=== PATIENT | female | born 1945 | race African-American/Black ===

== ENCOUNTER 2017-05-22 20:57 | Inpatient (IN) | payer MEDICARE, MEDICAID ==
[~2017-05-22] VITALS: Ht 167.6 cm; Wt 68.0 kg
[~2017-05-22 20:57] MED LIST: ALBU05 IH; ALD50 PO; ASPI-1159 PO; FAMO40TA70 PO; FLUT1DIS3 IH; FURO-151 PO; GUAI1TBM14 PO; HYDR-4134 PO; LEVO500T2 PO; LINA5TAB PO; LISI-604 PO; P20 PO; PRANDIN PO; TIOT18CA3 IH
[2017-05-22] MEDS ORDERED: ASPIRIN 81MG TABLET PO STA (21:18)
[2017-05-22] MEDS ORDERED: FUROSEMIDE 40MG/4ML VIAL IV STA (21:18)
[2017-05-22] MEDS ORDERED: IPRATROPIUM/ALBUTEROL 0.5-3(2.5)MG/3ML NEB HHN ONE (21:30)
[2017-05-22 22:07] LABS: BG BASE EXCESS 3.1 mmol/L (-2.0-2.0); BG CARBOXYHEMOGLOBIN 1.5 % (0.5-1.5); BG DEOXYHEMOGLOBIN 6.2 % (0.0-5.0); BG FRACTION INSPIRED OXYGEN 32; BG HCO3 ACT 27.8 mmol/L (22.0-26.0); BG METHEMOGLOBIN 0.2 % (0.0-1.5); BG OXYGEN SATURATION 93.7 % (92.0-98.5); BG OXYHEMOGLOBIN 92.1 % (94.0-97.0); BG PH 7.429 (7.350-7.450); BG PO2 67.5 mmHg (75.0-100.0); BG SAMPLE SITE LEFT RADIAL; BG TOTAL HEMOGLOBIN 15.5 g/dL (12.0-18.0); BG VENT MODE NASAL CANNULA
[2017-05-22 22:37] LABS: BASOPHILS % 0.7 % (0.0-2.0); EOSINOPHILS % 9.4 % (0.0-5.0); HEMATOCRIT. 41.8 % (36.0-48.0); HEMOGLOBIN. 14.2 g/dL (12.0-16.0); LYMPHOCYTES % 37.1 % (20.0-50.0); MEAN CORPUSCULAR HEMOGLOBIN 29.8 pg (28.0-32.0); MEAN PLATELET VOLUME 8.9 fl (7.4-10.4); MONOCYTES % 10.9 % (2.0-8.0); NEUTROPHILS % 41.9 % (40.0-76.0); PLATELET 155 x1000/uL (130-400); RED BLOOD CELL COUNT 4.75 mill/uL (4.2-5.4); RED CELL DISTRIBUTION WIDTH 13.6 % (11.6-14.6)
[2017-05-22 22:38] LABS: CHLORIDE 105 mEq/L (98-107)
[2017-05-22 22:41] LABS: D-DIMER 1.88 mg/L FEU (<0.50); INR 1.2; PARTIAL THROMBOPLASTIN TIME 24.8 sec (23.4-31.0); PROTHROMBIN TIME 12.7 sec (9.4-11.6)
[2017-05-22 22:45] LABS: CARBON DIOXIDE 31 mEq/L (21-32); CREATINE KINASE 108 IU/L (26-192)
[2017-05-22 22:45] LABS: *AMPHETAMINES SCREEN URINE NEGATIVE (NEGATIVE); *BARBITURATES SCREEN URINE NEGATIVE (NEGATIVE); *BENZODIAZEPINES SCREEN URINE NEGATIVE (NEGATIVE); *COCAINE SCREEN URINE PRESUMTIVE POSITIVE (NEGATIVE); CANNABINOID URINE SCREEN NEGATIVE (NEGATIVE); METHADONE URINE SCREEN NEGATIVE (NEGATIVE); OPIATES URINE SCREEN NEGATIVE (NEGATIVE); PHENCYCLIDINE URINE SCREEN NEGATIVE (NEGATIVE)
[2017-05-22 22:47] LABS: TROPONIN I < 0.02 ng/mL (0.00-0.04)
[2017-05-22] MEDS ORDERED: MORPHINE SULFATE 4 MG/ML CPJ (NOT FOR IM USE) IV PRN (23:15)
[2017-05-22] MEDS ORDERED: LORAZEPAM 2MG/ML CPJ IV PRN (23:15)
[2017-05-22] MEDS ORDERED: MAGNESIUM/ALUMINUM HYDROXIDE/SIMETHICONE 30ML UDC PO PRN (23:15)
[2017-05-22] MEDS ORDERED: ENOXAPARIN 40MG/0.4ML SYR SUBCUT SCH (23:15)
[2017-05-22] MEDS ORDERED: DIPHENHYDRAMINE 50MG/ML VIAL IV PRN (23:15)
[2017-05-22] MEDS ORDERED: NITROGLYCERIN 0.4MG TABLET SL SL PRN (23:15)
[2017-05-22] MEDS ORDERED: TRAMADOL 50MG TABLET PO PRN (23:15)
[2017-05-22] MEDS ORDERED: ONDANSETRON HCL 4MG/2ML VIAL IV PRN (23:15)
[2017-05-22] MEDS ORDERED: NA PHOS,M-B/NA PHOS,DI-BA ENEMA 118ML PR PRN (23:15)
[2017-05-22] MEDS ORDERED: ZOLPIDEM TARTRATE 5MG TABLET PO PRN (23:15)
[2017-05-22] MEDS ORDERED: CLONIDINE 0.1MG TABLET PO PRN (23:15)
[2017-05-22] MEDS ORDERED: IPRATROPIUM/ALBUTEROL 0.5-3(2.5)MG/3ML NEB INH PRN (23:15)
[2017-05-22] MEDS ORDERED: DOCUSATE SODIUM 100MG CAPSULE PO PRN (23:15)
[2017-05-23 06:32] LABS: TROPONIN I < 0.02 ng/mL (0.00-0.04)
[2017-05-23 06:37] LABS: CREATINE KINASE 96 IU/L (26-192)
[2017-05-23 08:22] VITALS: BP 167/74
[2017-05-23 09:58] LABS: CARBON DIOXIDE 28 mEq/L (21-32); CHLORIDE 105 mEq/L (98-107)
[2017-05-23 10:43] LABS: BASOPHILS % 0.7 % (0.0-2.0); EOSINOPHILS % 7.1 % (0.0-5.0); HEMATOCRIT. 38.4 % (36.0-48.0); HEMOGLOBIN. 12.8 g/dL (12.0-16.0); LYMPHOCYTES % 25.2 % (20.0-50.0); MEAN CORPUSCULAR HEMOGLOBIN 29.4 pg (28.0-32.0); MEAN CORPUSCULAR VOLUME 88.4 fL (81.0-99.0); MEAN PLATELET VOLUME 9.4 fl (7.4-10.4); MONOCYTES % 10.9 % (2.0-8.0); NEUTROPHILS % 56.1 % (40.0-76.0); PLATELET 154 x1000/uL (130-400); RED BLOOD CELL COUNT 4.35 mill/uL (4.2-5.4); RED CELL DISTRIBUTION WIDTH 13.8 % (11.6-14.6)
[2017-05-23] MEDS ORDERED: POTASSIUM CHLORIDE 20MEQ TABLET SR PO NR ×2 (11:00→17:00)
[2017-05-23] MEDS ORDERED: DEXTROSE 50% WATER 50ML SYRINGE IV PRN (11:00)
[2017-05-23] MEDS: GUAIFENESIN/DM 600MG/30MG ER TAB 12HR PO SCH ×2 (11:11→20:56)
[2017-05-23] MEDS: SPIRONOLACTONE 25MG TABLET PO SCH ×2 (11:11→20:58)
[2017-05-23] MEDS: FUROSEMIDE 40MG/4ML VIAL IVP SCH ×2 (11:11→21:13)
[2017-05-23] MEDS: LISINOPRIL 20MG TABLET PO SCH ×2 (11:11→20:56)
[2017-05-23] MEDS: ASPIRIN 325MG EC TABLET PO SCH (11:11)
[2017-05-23] MEDS: FAMOTIDINE 20MG/2ML VIAL IV SCH ×2 (11:11→21:11)
[2017-05-23] MEDS: ENOXAPARIN 80MG/0.8ML SYR SUBCUT SCH ×2 (11:12→21:11)
[2017-05-23] MEDS ORDERED: SODIUM CHLORIDE 0.9% 10ML VIAL ONE (11:40)
[2017-05-23] MEDS ORDERED: IOHEXOL-350 100 ML BOTTLE ONE (11:40)
[2017-05-23] MEDS: LEVOFLOXACIN 500MG PREMIX 100 ML IV SCH (11:48)
[2017-05-23 12:00] VITALS: BP 133/73
[2017-05-23] MEDS ORDERED: KCL 20MEQ/100ML PREMIX 100 ML IV NR (12:00)
[2017-05-23] MEDS: BLOOD SUGAR DIAGNOSTIC STRIP TEST SCH ×3 (12:10→20:29)
[2017-05-23] MEDS: HYDRALAZINE HCL 50MG TABLET PO SCH ×2 (13:19→20:57)
[2017-05-23] MEDS: METHYLPREDNISOLONE SOD SUCC 125 MG/2 ML VIAL IV SCH ×2 (13:19→21:13)
[2017-05-23] MEDS: INSULIN LISPRO 100 UNITS/ML SUBCUT SCH ×3 (13:21→21:17)
[2017-05-23 14:53] LABS: CREATINE KINASE 87 IU/L (26-192); CREATINE KINASE MB FRACTION 3.5 ng/mL (0.5-3.6); TROPONIN I < 0.02 ng/mL (0.00-0.04)
[2017-05-23 16:00] VITALS: BP 132/77
[2017-05-23 20:00] VITALS: BP 139/62
[2017-05-23] MEDS: IPRATROPIUM/ALBUTEROL 0.5-3(2.5)MG/3ML NEB HHN SCH (20:06)
[2017-05-24] VITALS: BP 128/70
[2017-05-24 04:00] VITALS: BP 141/88
[2017-05-24] MEDS: IPRATROPIUM/ALBUTEROL 0.5-3(2.5)MG/3ML NEB HHN SCH ×6 (04:00→21:10)
[2017-05-24] MEDS: HYDRALAZINE HCL 50MG TABLET PO SCH ×3 (06:46→22:00)
[2017-05-24] MEDS: METHYLPREDNISOLONE SOD SUCC 125 MG/2 ML VIAL IV SCH ×3 (06:47→21:17)
[2017-05-24] MEDS: INSULIN LISPRO 100 UNITS/ML SUBCUT SCH ×4 (06:50→21:48)
[2017-05-24] MEDS: BLOOD SUGAR DIAGNOSTIC STRIP TEST SCH ×4 (07:10→21:00)
[2017-05-24 07:39] VITALS: BP 124/64
[2017-05-24 07:49] LABS: CARBON DIOXIDE 26 mEq/L (21-32); CHLORIDE 100 mEq/L (98-107)
[2017-05-24] MEDS: FUROSEMIDE 40MG/4ML VIAL IVP SCH ×2 (08:53→21:18)
[2017-05-24] MEDS: FAMOTIDINE 20MG/2ML VIAL IV SCH ×2 (08:53→21:17)
[2017-05-24] MEDS: GUAIFENESIN/DM 600MG/30MG ER TAB 12HR PO SCH ×2 (08:53→21:20)
[2017-05-24] MEDS: LISINOPRIL 20MG TABLET PO SCH ×2 (08:53→21:25)
[2017-05-24] MEDS: SPIRONOLACTONE 25MG TABLET PO SCH ×2 (08:53→21:21)
[2017-05-24] MEDS: ENOXAPARIN 80MG/0.8ML SYR SUBCUT SCH ×2 (09:09→21:45)
[2017-05-24] MEDS: ASPIRIN 325MG EC TABLET PO SCH (09:09)
[2017-05-24] MEDS: GUAIFENESIN 200MG/10ML SUGAR FREE UDC PO PRN (10:59)
[2017-05-24 12:00] VITALS: BP 146/57
[2017-05-24] MEDS: LEVOFLOXACIN 500MG PREMIX 100 ML IV SCH ×2 (13:29→13:36)
[2017-05-24 15:58] VITALS: BP 128/53
[2017-05-24] MEDS: ACETAMINOPHEN 325MG TABLET PO PRN (17:03)
[2017-05-24 20:00] VITALS: BP 138/72
[2017-05-24] MEDS: BUDESONIDE 0.5MG/2ML NEB HHN SCH (21:10)
[2017-05-25] VITALS: BP 129/96
[2017-05-25] MEDS: IPRATROPIUM/ALBUTEROL 0.5-3(2.5)MG/3ML NEB HHN SCH ×6 (00:35→20:00)
[2017-05-25 04:00] VITALS: BP 125/70
[2017-05-25] MEDS: HYDRALAZINE HCL 50MG TABLET PO SCH ×3 (06:15→22:46)
[2017-05-25] MEDS: BLOOD SUGAR DIAGNOSTIC STRIP TEST SCH ×4 (06:17→20:30)
[2017-05-25] MEDS: INSULIN LISPRO 100 UNITS/ML SUBCUT SCH ×4 (06:40→20:36)
[2017-05-25 07:32] VITALS: BP 126/51
[2017-05-25] MEDS: METHYLPREDNISOLONE SOD SUCC 125 MG/2 ML VIAL IV SCH (08:18)
[2017-05-25] MEDS: GUAIFENESIN/DM 600MG/30MG ER TAB 12HR PO SCH ×2 (08:19→20:25)
[2017-05-25] MEDS: ENOXAPARIN 80MG/0.8ML SYR SUBCUT SCH ×2 (08:19→22:46)
[2017-05-25] MEDS: SPIRONOLACTONE 25MG TABLET PO SCH ×2 (08:19→20:26)
[2017-05-25] MEDS: FUROSEMIDE 40MG/4ML VIAL IVP SCH ×2 (08:19→20:26)
[2017-05-25] MEDS: FAMOTIDINE 20MG/2ML VIAL IV SCH ×2 (08:19→20:26)
[2017-05-25] MEDS: BUDESONIDE 0.5MG/2ML NEB HHN SCH ×2 (08:21→16:00)
[2017-05-25] MEDS: LISINOPRIL 20MG TABLET PO SCH ×2 (08:26→20:25)
[2017-05-25] MEDS: ASPIRIN 325MG EC TABLET PO SCH (08:52)
[2017-05-25] MEDS: ACETAMINOPHEN 325MG TABLET PO PRN ×3 (08:52→22:45)
[2017-05-25 12:00] VITALS: BP 147/49
[2017-05-25] MEDS: GUAIFENESIN 200MG/10ML SUGAR FREE UDC PO PRN (12:34)
[2017-05-25 16:00] VITALS: BP 128/56
[2017-05-25] MEDS: LEVOFLOXACIN 500MG TABLET PO SCH (18:29)
[2017-05-25 20:00] VITALS: BP 142/67
[2017-05-25 21:30] LABS: CLARITY URINE CLOUDY (CLEAR); COLOR URINE ORANGE (YELLOW); GLUCOSE URINE 2+ (NEGATIVE); KETONES URINE NEGATIVE (NEGATIVE); LEUKOCYTE ESTERASE URINE 1+ (NEGATIVE); NITRITE URINE NEGATIVE (NEGATIVE); OCCULT BLOOD URINE 3+ (NEGATIVE); PROTEIN URINE 1+ (NEGATIVE); SPECIFIC GRAVITY URINE 1.027 (1.005-1.030)
[2017-05-25] MEDS ORDERED: INSULIN DETEMIR UD 100 UNITS/ML SYR SUBCUT SCH (22:00)
[2017-05-26] VITALS: BP 153/63
[2017-05-26] MEDS: IPRATROPIUM/ALBUTEROL 0.5-3(2.5)MG/3ML NEB HHN SCH ×3 (00:55→07:37)
[2017-05-26 04:00] VITALS: BP 141/71
[2017-05-26] MEDS: HYDRALAZINE HCL 50MG TABLET PO SCH ×2 (06:54→13:59)
[2017-05-26] MEDS: BLOOD SUGAR DIAGNOSTIC STRIP TEST SCH ×2 (06:56→13:01)
[2017-05-26] MEDS: BUDESONIDE 0.5MG/2ML NEB HHN SCH (07:36)
[2017-05-26] MEDS: INSULIN LISPRO 100 UNITS/ML SUBCUT SCH ×2 (07:58→13:28)
[2017-05-26 08:00] VITALS: BP 143/53
[2017-05-26] MEDS: LISINOPRIL 20MG TABLET PO SCH (08:54)
[2017-05-26] MEDS: SPIRONOLACTONE 25MG TABLET PO SCH (08:54)
[2017-05-26] MEDS: FUROSEMIDE 40MG/4ML VIAL IVP SCH (08:54)
[2017-05-26] MEDS: GUAIFENESIN/DM 600MG/30MG ER TAB 12HR PO SCH (08:55)
[2017-05-26] MEDS: FAMOTIDINE 20MG/2ML VIAL IV SCH (08:55)
[2017-05-26] MEDS: ASPIRIN 325MG EC TABLET PO SCH (08:58)
[2017-05-26] MEDS ORDERED: PREDNISONE 20MG TABLET PO SCH (09:00)
[2017-05-26] MEDS: ENOXAPARIN 80MG/0.8ML SYR SUBCUT SCH (11:09)
[2017-05-26] MEDS: LEVOFLOXACIN 500MG TABLET PO SCH (11:09)
[2017-05-26 11:57] VITALS: BP 143/53
[2017-05-26 12:00] VITALS: BP 122/53
== END 2017-05-26 14:00 | disposition home or self-care (01) | DRG 194 ==
LOC: ER 21:01 → 8WST 23:00 → ENRESERV 05-23 07:08
PROVIDERS: ADMIT Internal Medicine; ATTEND Internal Medicine
DX: I50.43 Acute on chronic combined systolic (congestive) and diastolic (congestive) heart failure (principal); I26.99 Other pulmonary embolism without acute cor pulmonale; J96.00 Acute respiratory failure, unspecified whether with hypoxia or hypercapnia; J44.1 Chronic obstructive pulmonary disease with (acute) exacerbation; I42.9 Cardiomyopathy, unspecified; E44.1 Mild protein-calorie malnutrition; E11.9 Type 2 diabetes mellitus without complications; I11.0 Hypertensive heart disease with heart failure; E87.6 Hypokalemia; F14.10 Cocaine abuse, uncomplicated; F17.210 Nicotine dependence, cigarettes, uncomplicated; Z79.4 Long term (current) use of insulin; Z83.3 Family history of diabetes mellitus; Z90.710 Acquired absence of both cervix and uterus; Z91.14 Patient's other noncompliance with medication regimen; Z88.5 Allergy status to narcotic agent; Z79.51 Long term (current) use of inhaled steroids; Z79.2 Long term (current) use of antibiotics; Z79.82 Long term (current) use of aspirin; Z79.899 Other long term (current) drug therapy; Z68.24 Body mass index [BMI] 24.0-24.9, adult
CPT/HCPCS: 36415; 36600; 71010; 71275; 80048; 80053; 80305; 81001; 82375; 82550; 82553; 82805; 82962; 83036; 83605; 83690; 83880; 84443; 84484; 85025; 85379; 85610; 85730; 87040; 93005; 93306; 93970; 94640; 94664; 96374; 97162; 97165; 99285; A4216; J1650; J1815; J1940; J1956; J2270; J2930; J3480; J3490; J7030; J7512; J7620; J7626; Q9967

== ENCOUNTER 2017-08-28 23:43 | Emergency (ER) | payer MEDICARE, MEDICAID ==
[~2017-08-28] VITALS: Ht 165.1 cm; Wt 72.0 kg
[2017-08-29] MEDS ORDERED: KETOROLAC 30MG/ML VIAL IV STA (04:41)
[2017-08-29] MEDS ORDERED: KETOROLAC 30MG/ML VIAL IM ONE (04:45)
[2017-08-29] MEDS ORDERED: ONDANSETRON 4MG ODT PO ONE (04:45)
[2017-08-29 05:00] LABS: CLARITY URINE CLEAR (CLEAR); COLOR URINE YELLOW (YELLOW); KETONES URINE NEGATIVE (NEGATIVE); LEUKOCYTE ESTERASE URINE TRACE (NEGATIVE); NITRITE URINE NEGATIVE (NEGATIVE); OCCULT BLOOD URINE NEGATIVE (NEGATIVE); PROTEIN URINE NEGATIVE (NEGATIVE); SPECIFIC GRAVITY URINE 1.008 (1.005-1.030); UROBILINOGEN URINE 0.2 E.U./dL (0.2-1.0)
[2017-08-29 05:21] LABS: CARBON DIOXIDE 28 mEq/L (21-32); CHLORIDE 107 mEq/L (98-107); ETHANOL BLOOD < 10 mg/dL
[2017-08-29 05:21] LABS: *AMPHETAMINES SCREEN URINE NEGATIVE (NEGATIVE); *BARBITURATES SCREEN URINE NEGATIVE (NEGATIVE); *BENZODIAZEPINES SCREEN URINE NEGATIVE (NEGATIVE); *COCAINE SCREEN URINE PRESUMTIVE POSITIVE (NEGATIVE); CANNABINOID URINE SCREEN NEGATIVE (NEGATIVE); METHADONE URINE SCREEN NEGATIVE (NEGATIVE); OPIATES URINE SCREEN NEGATIVE (NEGATIVE); PHENCYCLIDINE URINE SCREEN NEGATIVE (NEGATIVE)
[2017-08-29 05:22] LABS: INR 1.2; PROTHROMBIN TIME 12.5 sec (9.4-11.6)
[2017-08-29 05:23] LABS: BASOPHILS % 0.7 % (0.0-2.0); EOSINOPHILS % 6.7 % (0.0-5.0); HEMATOCRIT. 39.9 % (36.0-48.0); LYMPHOCYTES % 45.7 % (20.0-50.0); MEAN CORPUSCULAR HEMOGLOBIN 28.9 pg (28.0-32.0); MEAN CORPUSCULAR VOLUME 88.5 fL (81.0-99.0); MEAN PLATELET VOLUME 9.1 fl (7.4-10.4); NEUTROPHILS % 37.9 % (40.0-76.0); PLATELET 180 x1000/uL (130-400); RED BLOOD CELL COUNT 4.51 mill/uL (4.2-5.4); RED CELL DISTRIBUTION WIDTH 13.5 % (11.6-14.6)
[2017-08-29] MEDS ORDERED: LISINOPRIL 20MG TABLET PO ONE (07:45)
[2017-08-29 09:20] VITALS: BP 140/72
== END 2017-08-29 09:23 | disposition home or self-care (01) ==
LOC: ER 23:43
DX: M79.604 Pain in right leg (principal); M79.605 Pain in left leg; M79.89 Other specified soft tissue disorders; I50.9 Heart failure, unspecified; J44.9 Chronic obstructive pulmonary disease, unspecified; Z88.5 Allergy status to narcotic agent; Z59.0 Homelessness; Z79.82 Long term (current) use of aspirin; R03.0 Elevated blood-pressure reading, without diagnosis of hypertension
CPT/HCPCS: 36415; 71010; 80053; 80305; 81001; 85025; 85610; 87804; 93005; 96372; 99285; G0482; J1885; Q0162

== ENCOUNTER 2017-09-03 09:29 | Emergency (ER) | payer MEDICARE, MEDICAID ==
[~2017-09-03] VITALS: Ht 167.6 cm; Wt 65.0 kg
[2017-09-03 18:05] VITALS: BP 151/78
== END 2017-09-03 18:08 | disposition home or self-care (01) ==
LOC: ER 09:48
DX: B34.9 Viral infection, unspecified (principal); E11.9 Type 2 diabetes mellitus without complications; I11.0 Hypertensive heart disease with heart failure; I50.9 Heart failure, unspecified; J44.9 Chronic obstructive pulmonary disease, unspecified; Z79.82 Long term (current) use of aspirin; Z88.5 Allergy status to narcotic agent; Z86.711 Personal history of pulmonary embolism
CPT/HCPCS: 71010; 93005; 99284

== ENCOUNTER 2017-12-29 17:22 | Emergency (ER) | payer MEDICARE, MEDICAID ==
[~2017-12-29] VITALS: Ht 167.6 cm; Wt 57.0 kg
[~2017-12-29 17:22] MED LIST changes: -PRANDIN PO
[2017-12-29] MEDS ORDERED: ACETAMINOPHEN 325MG TABLET PO ONE (17:45)
[2017-12-29] MEDS ORDERED: IBUPROFEN 600MG TABLET PO ONE (20:00)
[2017-12-29 20:25] VITALS: BP 131/78
== END 2017-12-29 20:57 | disposition home or self-care (01) ==
LOC: ER 17:45
DX: S62.623A Displaced fracture of middle phalanx of left middle finger, initial encounter for closed fracture (principal); S20.212A Contusion of left front wall of thorax, initial encounter; S09.90XA Unspecified injury of head, initial encounter; M79.652 Pain in left thigh; I11.0 Hypertensive heart disease with heart failure; I50.9 Heart failure, unspecified; J44.9 Chronic obstructive pulmonary disease, unspecified; E11.9 Type 2 diabetes mellitus without complications; Z79.82 Long term (current) use of aspirin; Z88.5 Allergy status to narcotic agent; Y04.0XXA Assault by unarmed brawl or fight, initial encounter; Y93.89 Activity, other specified; Y92.89 Other specified places as the place of occurrence of the external cause; Y99.8 Other external cause status
CPT/HCPCS: 29130; 70450; 71101; 73130; 99284

== ENCOUNTER 2018-06-25 10:33 | Inpatient (IN) | payer MEDICARE, MEDICAID ==
[~2018-06-25] VITALS: Ht 325.1 cm; Wt 68.0 kg
[~2018-06-25 10:33] MED LIST changes: -ALBU05 IH; -ALD50 PO; -ASPI-1159 PO; -FLUT1DIS3 IH; -GUAI1TBM14 PO; -LEVO500T2 PO; -TIOT18CA3 IH
[2018-06-25] MEDS ORDERED: ALBUTEROL (0.083%) 2.5MG/3ML NEB HHN STA (10:45)
[2018-06-25] MEDS ORDERED: IPRATROPIUM BROMIDE (0.02%) 0.5MG/2.5ML NEB HHN STA (10:45)
[2018-06-25] MEDS ORDERED: METHYLPREDNISOLONE SOD SUCC 125 MG/2 ML VIAL IV STA (10:45)
[2018-06-25] MEDS ORDERED: FUROSEMIDE 20MG/2ML VIAL IVP ONE ×2 (11:15→12:30)
[2018-06-25 11:46] LABS: BASOPHILS % 0.9 % (0.0-2.0); EOSINOPHILS % 7.7 % (0.0-5.0); HEMATOCRIT. 41.8 % (36.0-48.0); HEMOGLOBIN. 14.4 g/dL (12.0-16.0); LYMPHOCYTES % 40.4 % (20.0-50.0); MEAN CORPUSCULAR HEMOGLOBIN 31.4 pg (28.0-32.0); MEAN CORPUSCULAR VOLUME 91.2 fL (81.0-99.0); MEAN PLATELET VOLUME 9.4 fl (7.4-10.4); MONOCYTES % 7.3 % (2.0-8.0); NEUTROPHILS % 43.7 % (40.0-76.0); PLATELET 174 x1000/uL (130-400); RED BLOOD CELL COUNT 4.58 mill/uL (4.2-5.4); RED CELL DISTRIBUTION WIDTH 13.2 % (11.6-14.6)
[2018-06-25 11:47] LABS: INR 1.2; PARTIAL THROMBOPLASTIN TIME 25.3 sec (23.4-31.0)
[2018-06-25] MEDS ORDERED: MAGNESIUM 2 G PREMIX 50 ML IV ONE (12:00)
[2018-06-25 12:02] LABS: CHLORIDE 103 mEq/L (98-107)
[2018-06-25] MEDS ORDERED: LEVOFLOXACIN 500MG PREMIX 100 ML IV ONE (12:30)
[2018-06-25] MEDS ORDERED: HYDRALAZINE 20MG/ML VIAL IV NR (13:45)
[2018-06-25] MEDS ORDERED: IPRATROPIUM/ALBUTEROL 0.5-3(2.5)MG/3ML NEB HHN PRN (13:45)
[2018-06-25] MEDS ORDERED: DEXTROSE 50% WATER 50ML SYRINGE IV PRN (13:45)
[2018-06-25] MEDS ORDERED: CLONIDINE 0.1MG TABLET PO PRN (13:45)
[2018-06-25] MEDS: BLOOD SUGAR DIAGNOSTIC STRIP TEST SCH ×2 (17:00→21:00)
[2018-06-25] MEDS: INSULIN LISPRO 100 UNITS/ML SUBCUT SCH ×2 (18:20→23:27)
[2018-06-25] MEDS ORDERED: METOPROLOL TARTRATE 50MG TABLET PO SCH (22:30)
[2018-06-25] MEDS: HYDRALAZINE HCL 50MG TABLET PO SCH (23:09)
[2018-06-25] MEDS: LOSARTAN POTASSIUM 100 MG TABLET PO SCH (23:10)
[2018-06-25] MEDS: FUROSEMIDE 40MG TABLET PO SCH (23:11)
[2018-06-25] MEDS: FAMOTIDINE 20MG TABLET PO SCH (23:11)
[2018-06-25] MEDS: AMLODIPINE 5MG TABLET PO SCH (23:12)
[2018-06-25] MEDS: METHYLPREDNISOLONE SOD SUCC 40 MG/ML VIAL IV SCH (23:12)
[2018-06-25] MEDS: MONTELUKAST SODIUM 10MG TABLET PO SCH (23:14)
[2018-06-25 23:32] VITALS: BP 149/69
[2018-06-26] VITALS (7 sets, daily range): BP systolic 110–167; BP diastolic 53–83
[2018-06-26] MEDS: HYDRALAZINE HCL 50MG TABLET PO SCH ×2 (05:09→13:03)
[2018-06-26] MEDS: METHYLPREDNISOLONE SOD SUCC 40 MG/ML VIAL IV SCH ×3 (05:10→21:00)
[2018-06-26 06:35] LABS: HEMATOCRIT. 40.6 % (36.0-48.0); HEMOGLOBIN. 14.1 g/dL (12.0-16.0); MEAN CORPUSCULAR HEMOGLOBIN 31.4 pg (28.0-32.0); MEAN CORPUSCULAR VOLUME 90.3 fL (81.0-99.0); MEAN PLATELET VOLUME 9.9 fl (7.4-10.4); PLATELET 188 x1000/uL (130-400); RED CELL DISTRIBUTION WIDTH 13.4 % (11.6-14.6)
[2018-06-26] MEDS: BLOOD SUGAR DIAGNOSTIC STRIP TEST SCH ×4 (06:36→21:08)
[2018-06-26] MEDS: FUROSEMIDE 40MG TABLET PO SCH (08:12)
[2018-06-26] MEDS: AMLODIPINE 5MG TABLET PO SCH (08:12)
[2018-06-26] MEDS: LOSARTAN POTASSIUM 100 MG TABLET PO SCH (08:12)
[2018-06-26] MEDS: INSULIN LISPRO 100 UNITS/ML SUBCUT SCH ×4 (08:13→21:06)
[2018-06-26 09:03] LABS: CHLORIDE 98 mEq/L (98-107)
[2018-06-26] MEDS: IPRATROPIUM/ALBUTEROL 0.5-3(2.5)MG/3ML NEB HHN SCH ×3 (11:42→21:07)
[2018-06-26 14:10] LABS: PLATELET ESTIMATE NORMAL
[2018-06-26] MEDS: NIFEDIPINE XL 60MG TAB PO SCH (17:11)
[2018-06-26] MEDS: MONTELUKAST SODIUM 10MG TABLET PO SCH (17:11)
[2018-06-26] MEDS: FAMOTIDINE 20MG TABLET PO SCH (20:58)
[2018-06-26] MEDS: INSULIN GLARGINE UD 100 UNITS/ML SYR SUBCUT SCH (21:07)
[2018-06-26] MEDS: HYDRALAZINE HCL 100MG TABLET PO SCH (21:12)
[2018-06-27] VITALS (7 sets, daily range): BP systolic 107–140; BP diastolic 53–78
[2018-06-27] MEDS: IPRATROPIUM/ALBUTEROL 0.5-3(2.5)MG/3ML NEB HHN SCH ×5 (01:20→20:46)
[2018-06-27] MEDS: METHYLPREDNISOLONE SOD SUCC 40 MG/ML VIAL IV SCH ×2 (05:48→13:47)
[2018-06-27] MEDS: HYDRALAZINE HCL 100MG TABLET PO SCH ×3 (05:48→21:19)
[2018-06-27] MEDS: BLOOD SUGAR DIAGNOSTIC STRIP TEST SCH ×4 (06:12→21:19)
[2018-06-27] MEDS: INSULIN LISPRO 100 UNITS/ML SUBCUT SCH ×4 (06:15→21:18)
[2018-06-27] MEDS: FUROSEMIDE 40MG TABLET PO SCH (08:08)
[2018-06-27] MEDS: NIFEDIPINE XL 60MG TAB PO SCH (09:00)
[2018-06-27] MEDS: INSULIN GLARGINE UD 100 UNITS/ML SYR SUBCUT SCH ×2 (09:42→21:18)
[2018-06-27] MEDS: MONTELUKAST SODIUM 10MG TABLET PO SCH (16:21)
[2018-06-27] MEDS: FAMOTIDINE 20MG TABLET PO SCH (21:19)
[2018-06-27 21:43] LABS: CLARITY URINE CLEAR (CLEAR); COLOR URINE YELLOW (YELLOW); KETONES URINE NEGATIVE (NEGATIVE); LEUKOCYTE ESTERASE URINE NEGATIVE (NEGATIVE); NITRITE URINE NEGATIVE (NEGATIVE); OCCULT BLOOD URINE NEGATIVE (NEGATIVE); PROTEIN URINE NEGATIVE (NEGATIVE); SPECIFIC GRAVITY URINE 1.017 (1.005-1.030); UROBILINOGEN URINE 0.2 E.U./dL (0.2-1.0)
[2018-06-27 21:57] LABS: *AMPHETAMINES SCREEN URINE NEGATIVE (NEGATIVE); *BARBITURATES SCREEN URINE NEGATIVE (NEGATIVE); *BENZODIAZEPINES SCREEN URINE NEGATIVE (NEGATIVE); *COCAINE SCREEN URINE PRESUMTIVE POSITIVE (NEGATIVE); CANNABINOID URINE SCREEN NEGATIVE (NEGATIVE); METHADONE URINE SCREEN NEGATIVE (NEGATIVE); OPIATES URINE SCREEN NEGATIVE (NEGATIVE); PHENCYCLIDINE URINE SCREEN NEGATIVE (NEGATIVE)
[2018-06-28] MEDS: IPRATROPIUM/ALBUTEROL 0.5-3(2.5)MG/3ML NEB HHN SCH ×4 (01:05→13:41)
[2018-06-28 04:00] VITALS: BP 144/62
[2018-06-28] MEDS: HYDRALAZINE HCL 100MG TABLET PO SCH (06:07)
[2018-06-28] MEDS: BLOOD SUGAR DIAGNOSTIC STRIP TEST SCH ×2 (06:35→11:57)
[2018-06-28] MEDS: INSULIN LISPRO 100 UNITS/ML SUBCUT SCH ×2 (06:35→12:08)
[2018-06-28 08:00] VITALS: BP_SYST 145; BP_SYST 161; BP_DIAS 66; BP_DIAS 94
[2018-06-28] MEDS: FUROSEMIDE 40MG TABLET PO SCH (08:49)
[2018-06-28] MEDS: NIFEDIPINE XL 60MG TAB PO SCH (08:50)
[2018-06-28] MEDS ORDERED: PREDNISONE 20MG TABLET PO SCH (09:00)
[2018-06-28] MEDS: INSULIN GLARGINE UD 100 UNITS/ML SYR SUBCUT SCH (10:00)
[2018-06-28 12:00] VITALS: BP 143/70
[2018-06-28 12:24] VITALS: BP 143/70
[2018-06-28] MEDS ORDERED: BUDESONIDE 0.5MG/2ML NEB HHN SCH (14:00)
== END 2018-06-28 16:15 | disposition home or self-care (01) | DRG 816 ==
LOC: ER 10:33 → 8WST 12:31 → EDBEDREQ 12:34 → EDBEDREQSVC 12:34 → ENRESERV 18:55
PROVIDERS: ADMIT Internal Medicine; ATTEND Internal Medicine
PROC: 5A09357 Assistance with Respiratory Ventilation, Less than 24 Consecutive Hours, Continuous Positive Airway Pressure (ICD-10-PCS; principal; 2018-06-25)
DX: T40.5X1A Poisoning by cocaine, accidental (unintentional), initial encounter (principal); J96.00 Acute respiratory failure, unspecified whether with hypoxia or hypercapnia; I50.43 Acute on chronic combined systolic (congestive) and diastolic (congestive) heart failure; J44.1 Chronic obstructive pulmonary disease with (acute) exacerbation; J45.901 Unspecified asthma with (acute) exacerbation; J68.0 Bronchitis and pneumonitis due to chemicals, gases, fumes and vapors; I11.0 Hypertensive heart disease with heart failure; E11.9 Type 2 diabetes mellitus without complications; F17.200 Nicotine dependence, unspecified, uncomplicated; Z60.2 Problems related to living alone; R01.1 Cardiac murmur, unspecified; Z90.710 Acquired absence of both cervix and uterus; Z91.14 Patient's other noncompliance with medication regimen; Z88.6 Allergy status to analgesic agent; Z79.899 Other long term (current) drug therapy; Z79.84 Long term (current) use of oral hypoglycemic drugs; Z85.42 Personal history of malignant neoplasm of other parts of uterus; Z86.711 Personal history of pulmonary embolism; Y92.89 Other specified places as the place of occurrence of the external cause; Z71.6 Tobacco abuse counseling
CPT/HCPCS: 36415; 71045; 80048; 80305; 82962; 83605; 83880; 84145; 84484; 93005; 94640; 94660; 96365; 96375; 99291; J1815; J1940; J1956; J2920; J2930; J3475; J7512; J7611; J7620; J7626

== ENCOUNTER 2018-07-26 14:35 | Inpatient (IN) | payer MEDICARE, MEDICAID ==
[~2018-07-26] VITALS: Ht 162.6 cm; Wt 58.5 kg
[~2018-07-26 14:35] MED LIST changes: -HYDR-4134 PO; -LISI-604 PO; -P20 PO
[2018-07-26] MEDS ORDERED: METHYLPREDNISOLONE SOD SUCC 125 MG/2 ML VIAL IV STA (15:17)
[2018-07-26] MEDS ORDERED: ALBUTEROL (0.083%) 2.5MG/3ML NEB HHN STA (15:17)
[2018-07-26] MEDS ORDERED: IPRATROPIUM BROMIDE (0.02%) 0.5MG/2.5ML NEB HHN STA (15:17)
[2018-07-26] MEDS ORDERED: FUROSEMIDE 40MG/4ML VIAL IV ONE (15:30)
[2018-07-26] MEDS ORDERED: NITROGLYCERIN OINT 1GM/INCH UDPKT TD ONE (15:30)
[2018-07-26] MEDS ORDERED: ASPIRIN 81MG TABLET PO ONE (15:30)
[2018-07-26 16:25] LABS: BASOPHILS % 0.5 % (0.0-2.0); EOSINOPHILS % 1.8 % (0.0-5.0); HEMATOCRIT. 42.9 % (36.0-48.0); HEMOGLOBIN. 14.4 g/dL (12.0-16.0); LYMPHOCYTES % 21.7 % (20.0-50.0); MEAN CORPUSCULAR VOLUME 92.1 fL (81.0-99.0); MONOCYTES % 7.3 % (2.0-8.0); NEUTROPHILS % 68.7 % (40.0-76.0); PLATELET 182 x1000/uL (130-400); RED BLOOD CELL COUNT 4.66 mill/uL (4.2-5.4); RED CELL DISTRIBUTION WIDTH 13.3 % (11.6-14.6)
[2018-07-26 16:31] LABS: CHLORIDE 102 mEq/L (98-107)
[2018-07-26 16:34] LABS: INR 1.1; PARTIAL THROMBOPLASTIN TIME 24.1 sec (23.4-31.0); PROTHROMBIN TIME 11.3 sec (9.1-11.1)
[2018-07-26] MEDS ORDERED: POTASSIUM CHLORIDE 20MEQ TABLET SR PO ONE (17:30)
[2018-07-26] MEDS ORDERED: DOCUSATE SODIUM 100MG CAPSULE PO PRN (17:45)
[2018-07-26] MEDS ORDERED: LORAZEPAM 0.5MG TABLET PO PRN (17:45)
[2018-07-26] MEDS ORDERED: NITROGLYCERIN 0.4MG TABLET SL SL PRN (17:45)
[2018-07-26] MEDS ORDERED: KETOROLAC 15MG/ML VIAL IV PRN (17:45)
[2018-07-26] MEDS ORDERED: NA PHOS,M-B/NA PHOS,DI-BA ENEMA 118ML PR PRN (17:45)
[2018-07-26] MEDS ORDERED: TRAMADOL 50MG TABLET PO PRN (17:45)
[2018-07-26] MEDS ORDERED: ONDANSETRON HCL 4MG/2ML INJ IV PRN (17:45)
[2018-07-26] MEDS ORDERED: CLONIDINE 0.1MG TABLET PO PRN (17:45)
[2018-07-26] MEDS ORDERED: ACETAMINOPHEN 325MG TABLET PO PRN (17:45)
[2018-07-26] MEDS ORDERED: GUAIFENESIN 200MG/10ML SUGAR FREE UDC PO PRN (17:45)
[2018-07-26] MEDS ORDERED: DEXTROSE 50% WATER 50ML SYRINGE IV PRN (17:45)
[2018-07-26] MEDS ORDERED: IPRATROPIUM/ALBUTEROL 0.5-3(2.5)MG/3ML NEB INH PRN (17:45)
[2018-07-26] MEDS ORDERED: MAGNESIUM/ALUMINUM HYDROXIDE/SIMETHICONE 30ML UDC PO PRN (17:45)
[2018-07-26] MEDS ORDERED: ZOLPIDEM TARTRATE 5MG TABLET PO PRN (17:45)
[2018-07-26] MEDS ORDERED: ENOXAPARIN 40MG/0.4ML SYR SUBCUT NR (19:15)
[2018-07-26] MEDS ORDERED: KCL 20MEQ/100ML PREMIX 100 ML IV NR (19:30)
[2018-07-26 20:28] LABS: *AMPHETAMINES SCREEN URINE NEGATIVE (NEGATIVE); *BARBITURATES SCREEN URINE NEGATIVE (NEGATIVE); *BENZODIAZEPINES SCREEN URINE NEGATIVE (NEGATIVE); *COCAINE SCREEN URINE PRESUMTIVE POSITIVE (NEGATIVE); CANNABINOID URINE SCREEN NEGATIVE (NEGATIVE); METHADONE URINE SCREEN NEGATIVE (NEGATIVE); OPIATES URINE SCREEN NEGATIVE (NEGATIVE); PHENCYCLIDINE URINE SCREEN NEGATIVE (NEGATIVE)
[2018-07-26] MEDS ORDERED: INSULIN GLARGINE UD 100 UNITS/ML SYR SUBCUT SCH (22:00)
[2018-07-26 22:50] VITALS: BP 139/82
[2018-07-27] MEDS ORDERED: DILTIAZEM HCL 60MG TABLET PO SCH
[2018-07-27] MEDS ORDERED: BLOOD SUGAR DIAGNOSTIC STRIP TEST SCH
[2018-07-27] MEDS ORDERED: SPIRONOLACTONE 25MG TABLET PO SCH
[2018-07-27] MEDS ORDERED: FUROSEMIDE 40MG/4ML VIAL IVP SCH
[2018-07-27] MEDS ORDERED: INSULIN LISPRO 100 UNITS/ML SUBCUT SCH
[2018-07-27] MEDS ORDERED: INSULIN GLARGINE UD 100 UNITS/ML SYR SUBCUT SCH (01:00)
[2018-07-27 04:00] VITALS: BP 151/89
[2018-07-27] MEDS: METHYLPREDNISOLONE SOD SUCC 125 MG/2 ML VIAL IV SCH ×3 (05:33→21:37)
[2018-07-27] MEDS: DILTIAZEM HCL 60MG TABLET PO SCH ×4 (05:33→21:37)
[2018-07-27] MEDS ORDERED: LEVOFLOXACIN 500MG PREMIX 100 ML IV NR (06:00)
[2018-07-27] MEDS: BLOOD SUGAR DIAGNOSTIC STRIP TEST SCH ×4 (06:25→21:37)
[2018-07-27 08:27] VITALS: BP 142/63
[2018-07-27] MEDS: ENOXAPARIN 40MG/0.4ML SYR SUBCUT SCH (09:28)
[2018-07-27] MEDS: LISINOPRIL 20MG TABLET PO SCH ×2 (09:29→21:37)
[2018-07-27] MEDS: ASPIRIN 325MG EC TABLET PO SCH (09:29)
[2018-07-27] MEDS: FUROSEMIDE 40MG/4ML VIAL IVP SCH ×2 (09:30→21:37)
[2018-07-27] MEDS: SPIRONOLACTONE 25MG TABLET PO SCH ×2 (09:30→21:36)
[2018-07-27] MEDS: ASCORBIC ACID 500 MG TABLET PO SCH ×2 (09:30→21:36)
[2018-07-27] MEDS: GUAIFENESIN/DM 600MG/30MG ER TAB 12HR PO SCH ×2 (09:30→21:36)
[2018-07-27] MEDS: INSULIN LISPRO 100 UNITS/ML SUBCUT SCH ×4 (09:44→21:45)
[2018-07-27 10:19] LABS: CREATINE KINASE 78 IU/L (26-192); CREATINE KINASE MB FRACTION 2.4 ng/mL (0.5-3.6)
[2018-07-27 11:17] VITALS: BP 123/48
[2018-07-27 15:51] VITALS: BP 100/61
[2018-07-27 17:17] LABS: CREATINE KINASE 71 IU/L (26-192); CREATINE KINASE MB FRACTION 2.5 ng/mL (0.5-3.6)
[2018-07-27 20:00] VITALS: BP 133/64
[2018-07-27] MEDS: INSULIN GLARGINE UD 100 UNITS/ML SYR SUBCUT SCH (21:46)
[2018-07-28] VITALS: BP 149/62
[2018-07-28 04:00] VITALS: BP 159/59
[2018-07-28] MEDS: BLOOD SUGAR DIAGNOSTIC STRIP TEST SCH ×4 (06:25→21:40)
[2018-07-28] MEDS: METHYLPREDNISOLONE SOD SUCC 125 MG/2 ML VIAL IV SCH ×3 (06:25→21:37)
[2018-07-28] MEDS: LEVOFLOXACIN 250MG PREMIX 50 ML IV SCH (06:25)
[2018-07-28] MEDS: DILTIAZEM HCL 60MG TABLET PO SCH ×3 (06:25→17:17)
[2018-07-28 08:00] VITALS: BP 164/67
[2018-07-28] MEDS: INSULIN LISPRO 100 UNITS/ML SUBCUT SCH ×4 (08:02→21:39)
[2018-07-28] MEDS: ASCORBIC ACID 500 MG TABLET PO SCH ×2 (08:43→21:36)
[2018-07-28] MEDS: SPIRONOLACTONE 25MG TABLET PO SCH ×2 (08:43→21:36)
[2018-07-28] MEDS: FUROSEMIDE 40MG/4ML VIAL IVP SCH ×2 (08:43→21:33)
[2018-07-28] MEDS: ASPIRIN 325MG EC TABLET PO SCH (08:43)
[2018-07-28] MEDS: GUAIFENESIN/DM 600MG/30MG ER TAB 12HR PO SCH ×2 (08:43→21:36)
[2018-07-28] MEDS: LISINOPRIL 20MG TABLET PO SCH ×2 (08:43→21:36)
[2018-07-28] MEDS: ENOXAPARIN 40MG/0.4ML SYR SUBCUT SCH (08:44)
[2018-07-28 12:00] VITALS: BP 118/60
[2018-07-28 16:00] VITALS: BP 115/45
[2018-07-28 20:00] VITALS: BP 145/56
[2018-07-28] MEDS: INSULIN GLARGINE UD 100 UNITS/ML SYR SUBCUT SCH (21:38)
[2018-07-29 00:03] VITALS: BP 145/95
[2018-07-29] MEDS: DILTIAZEM HCL 60MG TABLET PO SCH ×4 (00:06→17:44)
[2018-07-29 04:00] VITALS: BP 135/57
[2018-07-29] MEDS: LEVOFLOXACIN 250MG PREMIX 50 ML IV SCH (05:21)
[2018-07-29] MEDS: METHYLPREDNISOLONE SOD SUCC 125 MG/2 ML VIAL IV SCH ×3 (05:21→20:53)
[2018-07-29] MEDS: INSULIN LISPRO 100 UNITS/ML SUBCUT SCH ×4 (07:49→21:05)
[2018-07-29] MEDS: BLOOD SUGAR DIAGNOSTIC STRIP TEST SCH ×4 (07:49→20:53)
[2018-07-29 08:00] VITALS: BP 149/52
[2018-07-29] MEDS: GUAIFENESIN/DM 600MG/30MG ER TAB 12HR PO SCH ×2 (08:53→20:51)
[2018-07-29] MEDS: ASPIRIN 325MG EC TABLET PO SCH (08:53)
[2018-07-29] MEDS: SPIRONOLACTONE 25MG TABLET PO SCH ×2 (08:53→20:52)
[2018-07-29] MEDS: FUROSEMIDE 40MG/4ML VIAL IVP SCH ×2 (08:53→20:53)
[2018-07-29] MEDS: ASCORBIC ACID 500 MG TABLET PO SCH ×2 (08:53→20:52)
[2018-07-29] MEDS: LISINOPRIL 20MG TABLET PO SCH ×2 (08:54→20:53)
[2018-07-29] MEDS: ENOXAPARIN 40MG/0.4ML SYR SUBCUT SCH (08:59)
[2018-07-29 12:00] VITALS: BP 135/55
[2018-07-29 16:00] VITALS: BP 136/52
[2018-07-29 20:00] VITALS: BP 127/58
[2018-07-29] MEDS: INSULIN GLARGINE UD 100 UNITS/ML SYR SUBCUT SCH (21:06)
[2018-07-30] VITALS: BP 116/62
[2018-07-30 04:00] VITALS: BP 174/93
[2018-07-30] MEDS: METHYLPREDNISOLONE SOD SUCC 125 MG/2 ML VIAL IV SCH (05:25)
[2018-07-30] MEDS: DILTIAZEM HCL 60MG TABLET PO SCH ×3 (05:25→12:00)
[2018-07-30] MEDS: LEVOFLOXACIN 250MG PREMIX 50 ML IV SCH (05:25)
[2018-07-30 07:06] LABS: RED BLOOD CELL COUNT 4.82 mill/uL (4.2-5.4)
[2018-07-30 07:07] LABS: HEMATOCRIT 43.2 % (36.0-48.0); HEMOGLOBIN 14.8 g/dL (12.0-16.0); MEAN CORPUSCULAR HEMOGLOBIN 30.7 pg (28.0-32.0); MEAN CORPUSCULAR VOLUME 89.7 fL (81.0-99.0); PLATELET 247 x1000/uL (130-400); RED CELL DISTRIBUTION WIDTH 13.2 % (11.6-14.6)
[2018-07-30] MEDS: BLOOD SUGAR DIAGNOSTIC STRIP TEST SCH ×2 (07:20→12:13)
[2018-07-30] MEDS: INSULIN LISPRO 100 UNITS/ML SUBCUT SCH ×2 (07:50→12:14)
[2018-07-30 08:00] VITALS: BP 126/57
[2018-07-30] MEDS: ENOXAPARIN 40MG/0.4ML SYR SUBCUT SCH (08:41)
[2018-07-30] MEDS: FUROSEMIDE 40MG/4ML VIAL IVP SCH (08:41)
[2018-07-30] MEDS: GUAIFENESIN/DM 600MG/30MG ER TAB 12HR PO SCH (08:41)
[2018-07-30] MEDS: ASCORBIC ACID 500 MG TABLET PO SCH (08:42)
[2018-07-30] MEDS: SPIRONOLACTONE 25MG TABLET PO SCH (08:42)
[2018-07-30] MEDS: ASPIRIN 325MG EC TABLET PO SCH (08:42)
[2018-07-30] MEDS: LISINOPRIL 20MG TABLET PO SCH (08:42)
[2018-07-30 12:18] VITALS: BP 126/57
[2018-08-15] MEDS ORDERED: METF-414 PO (15:48)
[2018-08-15] MEDS ORDERED: FURO20TA4 PO (15:48)
== END 2018-07-30 13:50 | disposition home or self-care (01) | DRG 133 ==
LOC: ER 14:35 → 6WST 17:26 → SUPCPDRO 17:33 → ENRESERV 21:47
PROVIDERS: ADMIT Internal Medicine; ATTEND Internal Medicine
DX: J96.00 Acute respiratory failure, unspecified whether with hypoxia or hypercapnia (principal); I50.33 Acute on chronic diastolic (congestive) heart failure; E11.65 Type 2 diabetes mellitus with hyperglycemia; J44.1 Chronic obstructive pulmonary disease with (acute) exacerbation; I11.0 Hypertensive heart disease with heart failure; E87.6 Hypokalemia; F12.10 Cannabis abuse, uncomplicated; F14.10 Cocaine abuse, uncomplicated; F17.210 Nicotine dependence, cigarettes, uncomplicated; Z79.4 Long term (current) use of insulin; Z79.899 Other long term (current) drug therapy; Z90.710 Acquired absence of both cervix and uterus; Z91.11 Patient's noncompliance with dietary regimen; Z91.14 Patient's other noncompliance with medication regimen; Z71.51 Drug abuse counseling and surveillance of drug abuser; Z71.6 Tobacco abuse counseling; Z88.6 Allergy status to analgesic agent
CPT/HCPCS: 36415; 71045; 80061; 80305; 82550; 82553; 82962; 83036; 83880; 84484; 85027; 93005; 93970; 94640; 96374; 99285; J1650; J1815; J1940; J1956; J2930; J3480; J7040; J7611; J7620

== ENCOUNTER 2018-12-03 17:25 | Inpatient (IN) | payer MEDICARE, MEDICAID ==
[~2018-12-03] VITALS: Ht 167.6 cm; Wt 59.0 kg
[~2018-12-03 17:25] MED LIST changes: -FAMO40TA70 PO; -FURO-151 PO; +FURO20TA4 PO; -LINA5TAB PO; +METF-414 PO
[2018-12-03] MEDS ORDERED: ONDANSETRON HCL 4MG/2ML INJ IV STA (20:18)
[2018-12-03] MEDS ORDERED: FUROSEMIDE 40MG/4ML VIAL IV ONE (20:30)
[2018-12-03] MEDS ORDERED: ASPIRIN 81MG TABLET PO ONE (20:30)
[2018-12-03] MEDS ORDERED: KETOROLAC 15MG/ML VIAL IV ONE (21:45)
[2018-12-03] MEDS ORDERED: ACETAMINOPHEN 325MG TABLET PO ONE (21:45)
[2018-12-03 21:50] LABS: BASOPHILS % 0.9 % (0.0-2.0); EOSINOPHILS % 1.1 % (0.0-5.0); HEMATOCRIT. 40.8 % (36.0-48.0); HEMOGLOBIN. 13.7 g/dL (12.0-16.0); LYMPHOCYTES % 24.2 % (20.0-50.0); MEAN CORPUSCULAR HEMOGLOBIN 30.2 pg (28.0-32.0); MEAN CORPUSCULAR VOLUME 89.5 fL (81.0-99.0); MEAN PLATELET VOLUME 9.1 fl (7.4-10.4); MONOCYTES % 8.6 % (2.0-8.0); NEUTROPHILS % 65.2 % (40.0-76.0); PLATELET 224 x1000/uL (130-400); RED BLOOD CELL COUNT 4.55 mill/uL (4.2-5.4); RED CELL DISTRIBUTION WIDTH 13.6 % (11.6-14.6)
[2018-12-03 21:54] LABS: CHLORIDE 105 mEq/L (98-107)
[2018-12-03 21:59] LABS: D-DIMER 0.5 mg/L FEU (<0.50); ETHANOL BLOOD < 10 mg/dL; INR 1.2; PARTIAL THROMBOPLASTIN TIME 25.3 sec (23.4-31.0); PROTHROMBIN TIME 12.3 sec (9.1-11.1)
[2018-12-03 23:12] LABS: *AMPHETAMINES SCREEN URINE NEGATIVE (NEGATIVE); *BARBITURATES SCREEN URINE NEGATIVE (NEGATIVE); *BENZODIAZEPINES SCREEN URINE NEGATIVE (NEGATIVE); *COCAINE SCREEN URINE PRESUMTIVE POSITIVE (NEGATIVE)
[2018-12-03 23:13] LABS: CANNABINOID URINE SCREEN NEGATIVE (NEGATIVE); METHADONE URINE SCREEN NEGATIVE (NEGATIVE); OPIATES URINE SCREEN NEGATIVE (NEGATIVE); PHENCYCLIDINE URINE SCREEN NEGATIVE (NEGATIVE)
[2018-12-04] MEDS ORDERED: MAGNESIUM HYDROXIDE 400MG/5ML 30ML UDC PO PRN (00:15)
[2018-12-04] MEDS ORDERED: DEXTROSE 50% WATER 50ML SYRINGE IV PRN (00:15)
[2018-12-04] MEDS ORDERED: DIPHENHYDRAMINE 50MG/ML VIAL IV PRN (00:15)
[2018-12-04] MEDS ORDERED: IPRATROPIUM/ALBUTEROL 0.5-3(2.5)MG/3ML NEB INH PRN (00:15)
[2018-12-04] MEDS ORDERED: ONDANSETRON HCL 4MG/2ML INJ IV PRN (00:15)
[2018-12-04] MEDS ORDERED: GUAIFENESIN 200MG/10ML SUGAR FREE UDC PO PRN (00:15)
[2018-12-04] MEDS ORDERED: MAGNESIUM/ALUMINUM HYDROXIDE/SIMETHICONE 30ML UDC PO PRN (00:15)
[2018-12-04] MEDS ORDERED: CLONIDINE 0.1MG TABLET PO PRN (00:15)
[2018-12-04] MEDS: INSULIN LISPRO 100 UNITS/ML SUBCUT SCH ×4 (08:20→21:31)
[2018-12-04 09:00] VITALS: BP 178/80
[2018-12-04] MEDS: BLOOD SUGAR DIAGNOSTIC STRIP TEST SCH ×4 (09:30→21:33)
[2018-12-04] MEDS: ASPIRIN 325MG EC TABLET PO SCH (10:03)
[2018-12-04] MEDS: LISINOPRIL 20MG TABLET PO SCH ×2 (10:03→21:30)
[2018-12-04] MEDS: ENOXAPARIN 40MG/0.4ML SYR SUBCUT SCH (10:03)
[2018-12-04] MEDS: FUROSEMIDE 40MG/4ML VIAL IVP SCH ×2 (10:04→21:29)
[2018-12-04] MEDS: IPRATROPIUM/ALBUTEROL 0.5-3(2.5)MG/3ML NEB HHN SCH ×3 (11:30→20:39)
[2018-12-04] MEDS: BUDESONIDE 0.5MG/2ML NEB HHN SCH ×2 (11:30→20:40)
[2018-12-04 12:00] VITALS: BP 131/53
[2018-12-04] MEDS: DILTIAZEM HCL 60MG TABLET PO SCH ×2 (13:12→17:26)
[2018-12-04] MEDS: SODIUM CHLORIDE 0.9% INJ 3ML FLUSH IVF SCH ×2 (14:00→21:32)
[2018-12-04 15:00] VITALS: BP 116/57
[2018-12-04] MEDS: ACETAMINOPHEN 325MG TABLET PO PRN (17:22)
[2018-12-04] MEDS: POTASSIUM CHLORIDE 20MEQ TABLET SR PO SCH (17:22)
[2018-12-04 20:00] VITALS: BP 136/51
[2018-12-04] MEDS: FAMOTIDINE 20MG TABLET PO SCH (21:30)
[2018-12-04] MEDS: KETOROLAC 30MG/ML VIAL IV PRN (21:30)
[2018-12-04] MEDS: INSULIN GLARGINE UD 100 UNITS/ML SYR SUBCUT SCH (21:32)
[2018-12-04] MEDS ORDERED: INSULIN GLARGINE UD 100 UNITS/ML SYR SUBCUT SCH (22:00)
[2018-12-05] VITALS: BP 119/42
[2018-12-05] MEDS: DILTIAZEM HCL 60MG TABLET PO SCH ×4 (00:27→17:18)
[2018-12-05 04:00] VITALS: BP 112/57
[2018-12-05] MEDS: IPRATROPIUM/ALBUTEROL 0.5-3(2.5)MG/3ML NEB HHN SCH ×6 (04:00→22:00)
[2018-12-05] MEDS: SODIUM CHLORIDE 0.9% INJ 3ML FLUSH IVF SCH ×3 (06:41→22:00)
[2018-12-05] MEDS: INSULIN LISPRO 100 UNITS/ML SUBCUT SCH ×4 (06:41→21:00)
[2018-12-05] MEDS: BLOOD SUGAR DIAGNOSTIC STRIP TEST SCH ×4 (06:41→21:00)
[2018-12-05 08:00] VITALS: BP 134/53
[2018-12-05] MEDS: FUROSEMIDE 40MG/4ML VIAL IVP SCH ×2 (08:25→21:35)
[2018-12-05] MEDS: LISINOPRIL 20MG TABLET PO SCH ×2 (08:25→21:36)
[2018-12-05] MEDS: POTASSIUM CHLORIDE 20MEQ TABLET SR PO SCH ×2 (08:26→17:18)
[2018-12-05] MEDS: ASPIRIN 325MG EC TABLET PO SCH (08:26)
[2018-12-05 08:27] LABS: CHLORIDE 106 mEq/L (98-107)
[2018-12-05] MEDS: KETOROLAC 30MG/ML VIAL IV PRN (08:33)
[2018-12-05] MEDS ORDERED: LIDOCAINE HCL 1% 20ML VIAL (Pyxis) INJ INFIL NR (10:00)
[2018-12-05] MEDS: BUDESONIDE 0.5MG/2ML NEB HHN SCH ×2 (10:16→22:00)
[2018-12-05] MEDS ORDERED: MAGNESIUM 2 G PREMIX 50 ML IV NR (11:30)
[2018-12-05 12:00] VITALS: BP 121/45
[2018-12-05] MEDS: ENOXAPARIN 40MG/0.4ML SYR SUBCUT SCH (12:47)
[2018-12-05 15:59] VITALS: BP 137/53
[2018-12-05 20:00] VITALS: BP 126/53
[2018-12-05] MEDS: FAMOTIDINE 20MG TABLET PO SCH (21:36)
[2018-12-05] MEDS: INSULIN GLARGINE UD 100 UNITS/ML SYR SUBCUT SCH (21:37)
[2018-12-06] VITALS: BP 143/57
[2018-12-06] MEDS: DILTIAZEM HCL 60MG TABLET PO SCH ×3 (00:20→12:44)
[2018-12-06] MEDS: ACETAMINOPHEN 325MG TABLET PO PRN (00:20)
[2018-12-06] MEDS: KETOROLAC 30MG/ML VIAL IV PRN (00:29)
[2018-12-06] MEDS: IPRATROPIUM/ALBUTEROL 0.5-3(2.5)MG/3ML NEB HHN SCH ×5 (01:20→15:58)
[2018-12-06 04:00] VITALS: BP 143/51
[2018-12-06] MEDS: INSULIN LISPRO 100 UNITS/ML SUBCUT SCH ×2 (07:50→12:37)
[2018-12-06] MEDS: BLOOD SUGAR DIAGNOSTIC STRIP TEST SCH ×2 (07:52→12:37)
[2018-12-06] MEDS: SODIUM CHLORIDE 0.9% INJ 3ML FLUSH IVF SCH ×2 (07:52→14:00)
[2018-12-06 08:00] VITALS: BP 135/46
[2018-12-06] MEDS: BUDESONIDE 0.5MG/2ML NEB HHN SCH (08:34)
[2018-12-06] MEDS: FUROSEMIDE 40MG/4ML VIAL IVP SCH (09:23)
[2018-12-06] MEDS: POTASSIUM CHLORIDE 20MEQ TABLET SR PO SCH (09:23)
[2018-12-06] MEDS: ASPIRIN 325MG EC TABLET PO SCH (09:23)
[2018-12-06] MEDS: ENOXAPARIN 40MG/0.4ML SYR SUBCUT SCH (09:24)
[2018-12-06] MEDS: LISINOPRIL 20MG TABLET PO SCH (09:27)
[2018-12-06 12:00] VITALS: BP 128/47
[2018-12-06 16:10] VITALS: BP 128/47
== END 2018-12-06 17:05 | disposition home or self-care (01) | DRG 317 ==
LOC: ER 18:03 → 6WST 21:59 → EDBEDREQTM 22:02 → EDBEDREQ 22:02 → ENRESERV 12-04 07:07
PROVIDERS: ADMIT Internal Medicine; ATTEND Internal Medicine
PROC: 0KBV0ZZ Excision of Right Foot Muscle, Open Approach (ICD-10-PCS; principal; 2018-12-04)
DX: E11.621 Type 2 diabetes mellitus with foot ulcer (principal); M86.8X7 Other osteomyelitis, ankle and foot; I50.33 Acute on chronic diastolic (congestive) heart failure; E11.42 Type 2 diabetes mellitus with diabetic polyneuropathy; E11.69 Type 2 diabetes mellitus with other specified complication; J44.1 Chronic obstructive pulmonary disease with (acute) exacerbation; L97.519 Non-pressure chronic ulcer of other part of right foot with unspecified severity; I83.93 Asymptomatic varicose veins of bilateral lower extremities; I87.2 Venous insufficiency (chronic) (peripheral); F14.10 Cocaine abuse, uncomplicated; F17.200 Nicotine dependence, unspecified, uncomplicated; I11.0 Hypertensive heart disease with heart failure; Z82.49 Family history of ischemic heart disease and other diseases of the circulatory system; Z90.710 Acquired absence of both cervix and uterus; Z91.14 Patient's other noncompliance with medication regimen; Z86.718 Personal history of other venous thrombosis and embolism; Z88.5 Allergy status to narcotic agent; Z71.6 Tobacco abuse counseling
CPT/HCPCS: 36415; 71045; 73630; 80048; 80305; 80320; 82962; 83605; 83735; 83880; 84484; 85379; 85651; 86140; 93005; 93970; 94640; J1650; J1815; J1885; J1940; J2405; J3475; J3490; J7050; J7620; J7626; G0480

== ENCOUNTER 2020-03-14 13:13 | Inpatient (IN) | payer MEDICARE, MEDICAID ==
[~2020-03-14] VITALS: Ht 165.1 cm; Wt 65.8 kg
[~2020-03-14 13:13] MED LIST changes: +CARV3.1242 MT; +LOSA25TA26 MT
[2020-03-14 16:15] LABS: BASOPHILS % 0.5 % (0.0-2.0); EOSINOPHILS % 0.1 % (0.0-5.0); HEMATOCRIT. 42.6 % (36.0-48.0); HEMOGLOBIN. 14.8 g/dL (12.0-16.0); LYMPHOCYTES % 15.2 % (20.0-50.0); MEAN CORPUSCULAR HEMOGLOBIN 32.2 pg (28.0-32.0); MEAN CORPUSCULAR VOLUME 92.4 fL (81.0-99.0); MEAN PLATELET VOLUME 9.8 fl (7.4-10.4); MONOCYTES % 9.2 % (2.0-8.0); PLATELET 192 x1000/uL (130-400); RED BLOOD CELL COUNT 4.61 mill/uL (4.2-5.4); RED CELL DISTRIBUTION WIDTH 12.6 % (11.6-14.6)
[2020-03-14] MEDS ORDERED: IBUPROFEN 600MG TABLET PO ONE (16:45)
[2020-03-14 18:52] LABS: CHLORIDE 101 mEq/L (98-107)
[2020-03-14 19:07] LABS: CLARITY URINE CLEAR (CLEAR); COLOR URINE DARK YELLOW (YELLOW); KETONES URINE NEGATIVE (NEGATIVE); LEUKOCYTE ESTERASE URINE 1+ (NEGATIVE); NITRITE URINE NEGATIVE (NEGATIVE); OCCULT BLOOD URINE 3+ (NEGATIVE); PROTEIN URINE 1+ (NEGATIVE); SPECIFIC GRAVITY URINE 1.023 (1.005-1.030)
[2020-03-14 19:22] LABS: *AMPHETAMINES SCREEN URINE NEGATIVE (NEGATIVE); *BARBITURATES SCREEN URINE NEGATIVE (NEGATIVE); *BENZODIAZEPINES SCREEN URINE NEGATIVE (NEGATIVE); *COCAINE SCREEN URINE PRESUMTIVE POSITIVE (NEGATIVE)
[2020-03-14 19:23] LABS: CANNABINOID URINE SCREEN NEGATIVE (NEGATIVE); METHADONE URINE SCREEN NEGATIVE (NEGATIVE); OPIATES URINE SCREEN NEGATIVE (NEGATIVE); PHENCYCLIDINE URINE SCREEN NEGATIVE (NEGATIVE)
[2020-03-14] MEDS ORDERED: LEVOFLOXACIN 500MG PREMIX 100 ML IV ONE (21:30)
[2020-03-14 21:51] VITALS: BP 149/67
[2020-03-14] MEDS ORDERED: ALBU05 NEB (22:37)
[2020-03-14] MEDS ORDERED: METF-414 MT (22:37)
[2020-03-15] VITALS: BP 150/72
[2020-03-15] MEDS ORDERED: DEXTROSE 50% WATER 50ML SYRINGE IV PRN (00:30)
[2020-03-15] MEDS ORDERED: HYDROCODONE/ACETAMINOPHEN 5/325MG TABLET PO PRN (00:30)
[2020-03-15] MEDS ORDERED: MORPHINE SULFATE 2 MG/ML CPJ (NOT FOR IM USE) IV PRN (03:30)
[2020-03-15] MEDS ORDERED: HYDROMORPHONE HCL/PF 2MG/ML CPJ IV PRN (03:45)
[2020-03-15 04:00] VITALS: BP 130/67
[2020-03-15] MEDS: BLOOD SUGAR DIAGNOSTIC STRIP TEST SCH ×4 (06:08→21:11)
[2020-03-15] MEDS: INSULIN LISPRO 100 UNITS/ML SUBCUT SCH ×4 (06:09→21:00)
[2020-03-15 08:00] VITALS: BP 149/75
[2020-03-15] MEDS ORDERED: FUROSEMIDE 40MG TABLET PO SCH (09:00)
[2020-03-15] MEDS: ASPIRIN 325MG TABLET PO SCH (09:35)
[2020-03-15] MEDS: METFORMIN HCL 500MG TABLET PO SCH ×2 (09:35→17:20)
[2020-03-15] MEDS: ENOXAPARIN 40MG/0.4ML SYR SUBCUT SCH (09:36)
[2020-03-15] MEDS: CARVEDILOL 3.125 MG TABLET PO SCH ×2 (09:36→21:26)
[2020-03-15 09:52] LABS: CHLORIDE 103 mEq/L (98-107)
[2020-03-15 09:54] LABS: BASOPHILS % 0.3 % (0.0-2.0); EOSINOPHILS % 0.3 % (0.0-5.0); HEMATOCRIT. 39.1 % (36.0-48.0); HEMOGLOBIN. 13.6 g/dL (12.0-16.0); LYMPHOCYTES % 11.1 % (20.0-50.0); MEAN CORPUSCULAR HEMOGLOBIN 32.2 pg (28.0-32.0); MEAN CORPUSCULAR VOLUME 92.6 fL (81.0-99.0); MEAN PLATELET VOLUME 9.7 fl (7.4-10.4); MONOCYTES % 7.8 % (2.0-8.0); NEUTROPHILS % 80.5 % (40.0-76.0); PLATELET 180 x1000/uL (130-400); RED BLOOD CELL COUNT 4.22 mill/uL (4.2-5.4); RED CELL DISTRIBUTION WIDTH 12.6 % (11.6-14.6)
[2020-03-15 09:59] LABS: LDL CHOLESTEROL 63 mg/dL (5-100)
[2020-03-15 10:00] LABS: HDL CHOLESTEROL 56 mg/dL (40-59)
[2020-03-15] MEDS ORDERED: HYDROCODONE/ACETAMINOPHEN 10/325MG TABLET PO PRN (11:45)
[2020-03-15] MEDS ORDERED: IPRATROPIUM/ALBUTEROL 0.5-3(2.5)MG/3ML NEB HHN PRN (11:45)
[2020-03-15 12:00] VITALS: BP 130/78
[2020-03-15] MEDS: ACETAMINOPHEN 325MG TABLET PO PRN ×2 (12:37→17:24)
[2020-03-15 16:00] VITALS: BP 131/66
[2020-03-15 20:00] VITALS: BP 158/72
[2020-03-15] MEDS ORDERED: ATORVASTATIN CALCIUM 20MG TABLET PO SCH (21:00)
[2020-03-16] VITALS: BP 145/70
[2020-03-16 03:57] VITALS: BP 124/65
[2020-03-16] MEDS: BLOOD SUGAR DIAGNOSTIC STRIP TEST SCH ×2 (06:09→12:01)
[2020-03-16] MEDS: INSULIN LISPRO 100 UNITS/ML SUBCUT SCH ×2 (06:25→12:01)
[2020-03-16 06:31] LABS: BASOPHILS % 0.6 % (0.0-2.0); EOSINOPHILS % 1.4 % (0.0-5.0); HEMATOCRIT. 37.6 % (36.0-48.0); HEMOGLOBIN. 13.1 g/dL (12.0-16.0); LYMPHOCYTES % 29.2 % (20.0-50.0); MEAN CORPUSCULAR HEMOGLOBIN 32.2 pg (28.0-32.0); MEAN CORPUSCULAR VOLUME 92.1 fL (81.0-99.0); MEAN PLATELET VOLUME 9.3 fl (7.4-10.4); MONOCYTES % 8.7 % (2.0-8.0); NEUTROPHILS % 60.1 % (40.0-76.0); PLATELET 198 x1000/uL (130-400); RED BLOOD CELL COUNT 4.08 mill/uL (4.2-5.4); RED CELL DISTRIBUTION WIDTH 12.7 % (11.6-14.6)
[2020-03-16 07:32] LABS: CHLORIDE 102 mEq/L (98-107)
[2020-03-16 08:00] VITALS: BP 142/70
[2020-03-16] MEDS: CARVEDILOL 3.125 MG TABLET PO SCH (08:45)
[2020-03-16] MEDS: METFORMIN HCL 500MG TABLET PO SCH (08:45)
[2020-03-16] MEDS: FUROSEMIDE 40MG/4ML VIAL IVP SCH ×2 (08:46→09:00)
[2020-03-16] MEDS: ASPIRIN 325MG TABLET PO SCH (08:46)
[2020-03-16] MEDS: ENOXAPARIN 40MG/0.4ML SYR SUBCUT SCH (08:46)
[2020-03-16] MEDS ORDERED: LOSARTAN POTASSIUM 25 MG TABLET PO SCH (09:00)
[2020-03-16] MEDS ORDERED: LOSA25TA26 MT (11:24)
[2020-03-16] MEDS ORDERED: CARV3.1242 MT (11:24)
[2020-03-16] MEDS ORDERED: METF-416 MT (11:24)
[2020-03-16] MEDS ORDERED: FURO-151 MT (11:24)
[2020-03-16] MEDS ORDERED: ALBU05 NEB (11:24)
[2020-03-16 12:00] VITALS: BP 130/63
[2020-03-16 13:40] VITALS: BP 130/63
== END 2020-03-16 14:22 | disposition home or self-care (01) | DRG 347 ==
LOC: ER 13:25 → 8WST 19:23 → ENRESERV 20:50
PROVIDERS: ADMIT Internal Medicine; ATTEND Internal Medicine
DX: M47.812 Spondylosis without myelopathy or radiculopathy, cervical region (principal); E43 Unspecified severe protein-calorie malnutrition; I50.43 Acute on chronic combined systolic (congestive) and diastolic (congestive) heart failure; E11.9 Type 2 diabetes mellitus without complications; I42.9 Cardiomyopathy, unspecified; I11.0 Hypertensive heart disease with heart failure; E87.1 Hypo-osmolality and hyponatremia; J44.9 Chronic obstructive pulmonary disease, unspecified; M54.12 Radiculopathy, cervical region; M54.5 Low back pain; R07.9 Chest pain, unspecified; F14.10 Cocaine abuse, uncomplicated; Z90.710 Acquired absence of both cervix and uterus; Z82.49 Family history of ischemic heart disease and other diseases of the circulatory system; Z88.5 Allergy status to narcotic agent; Z79.84 Long term (current) use of oral hypoglycemic drugs; Z79.899 Other long term (current) drug therapy; Z68.24 Body mass index [BMI] 24.0-24.9, adult; Z71.51 Drug abuse counseling and surveillance of drug abuser
CPT/HCPCS: 36415; 71045; 72040; 72070; 72100; 80048; 80053; 80061; 80305; 81003; 82962; 83036; 83880; 84484; 85025; 93005; 93306; 99285; J1170; J1650; J1815; J1940

== ENCOUNTER 2020-04-28 12:14 | Inpatient (IN) | payer MEDICARE, MEDICAID ==
[~2020-04-28] VITALS: Ht 167.6 cm; Wt 53.6 kg
[~2020-04-28 12:14] MED LIST changes: +ALBU05 NEB; +FURO-151 MT; -FURO20TA4 PO; -METF-414 PO; +METF-416 MT
[2020-04-28 14:56] LABS: BASOPHILS % 0.7 % (0.0-2.0); CHLORIDE 108 mEq/L (98-107); EOSINOPHILS % 4.7 % (0.0-5.0); HEMATOCRIT. 41.3 % (36.0-48.0); LYMPHOCYTES % 30.4 % (20.0-50.0); MEAN CORPUSCULAR VOLUME 91.6 fL (81.0-99.0); MEAN PLATELET VOLUME 9.3 fl (7.4-10.4); MONOCYTES % 9.7 % (2.0-8.0); NEUTROPHILS % 54.5 % (40.0-76.0); PLATELET 165 x1000/uL (130-400); RED BLOOD CELL COUNT 4.51 mill/uL (4.2-5.4); RED CELL DISTRIBUTION WIDTH 13.2 % (11.6-14.6)
[2020-04-28 15:00] LABS: CLARITY URINE CLOUDY (CLEAR); COLOR URINE DARK YELLOW (YELLOW); KETONES URINE TRACE (NEGATIVE); LEUKOCYTE ESTERASE URINE 1+ (NEGATIVE); NITRITE URINE NEGATIVE (NEGATIVE); OCCULT BLOOD URINE 3+ (NEGATIVE); PH URINE 5.5 (4.5-8.0); PROTEIN URINE 2+ (NEGATIVE)
[2020-04-28] MEDS ORDERED: ASPIRIN 81MG TABLET PO ONE ×2 (15:00→16:45)
[2020-04-28 15:23] LABS: *AMPHETAMINES SCREEN URINE NEGATIVE (NEGATIVE); *BARBITURATES SCREEN URINE NEGATIVE (NEGATIVE); *BENZODIAZEPINES SCREEN URINE NEGATIVE (NEGATIVE)
[2020-04-28 15:24] LABS: *COCAINE SCREEN URINE PRESUMTIVE POSITIVE (NEGATIVE); METHADONE URINE SCREEN NEGATIVE (NEGATIVE); OPIATES URINE SCREEN NEGATIVE (NEGATIVE); PHENCYCLIDINE URINE SCREEN NEGATIVE (NEGATIVE)
[2020-04-28 15:25] LABS: CANNABINOID URINE SCREEN NEGATIVE (NEGATIVE)
[2020-04-28] MEDS ORDERED: CEFTRIAXONE 1 G PREMIX 50 ML IV ONE (15:45)
[2020-04-28] MEDS ORDERED: ONDANSETRON HCL 4MG/2ML INJ IV PRN (16:15)
[2020-04-28] MEDS ORDERED: CLONIDINE 0.1MG TABLET PO PRN (16:15)
[2020-04-28] MEDS ORDERED: CEFTRIAXONE 1 G PREMIX 50 ML IV SCH (16:15)
[2020-04-28] MEDS: POTASSIUM CHLORIDE 20MEQ TABLET SR PO SCH (20:00)
[2020-04-28] MEDS: LOSARTAN POTASSIUM 25 MG TABLET PO SCH (20:00)
[2020-04-28] MEDS: FUROSEMIDE 40MG/4ML VIAL IVP SCH (20:00)
[2020-04-28] MEDS: ENOXAPARIN 40MG/0.4ML SYR SUBCUT SCH (20:00)
[2020-04-28 23:40] LABS: PHOSPHORUS 4.1 mg/dL (2.5-4.9)
[2020-04-29] VITALS (8 sets, daily range): BP systolic 134–166; BP diastolic 77–90
[2020-04-29 06:50] LABS: BASOPHILS % 0.5 % (0.0-2.0); EOSINOPHILS % 3.4 % (0.0-5.0); HEMATOCRIT. 43.1 % (36.0-48.0); HEMOGLOBIN. 14.4 g/dL (12.0-16.0); LYMPHOCYTES % 35.4 % (20.0-50.0); MEAN CORPUSCULAR HEMOGLOBIN 30.7 pg (28.0-32.0); MEAN CORPUSCULAR VOLUME 91.7 fL (81.0-99.0); MEAN PLATELET VOLUME 10.2 fl (7.4-10.4); MONOCYTES % 7.3 % (2.0-8.0); NEUTROPHILS % 53.4 % (40.0-76.0); PLATELET 182 x1000/uL (130-400); RED CELL DISTRIBUTION WIDTH 13.3 % (11.6-14.6)
[2020-04-29 06:59] LABS: CHLORIDE 106 mEq/L (98-107)
[2020-04-29 07:10] LABS: LDL CHOLESTEROL 84 mg/dL (5-100)
[2020-04-29 07:11] LABS: HDL CHOLESTEROL 72 mg/dL (40-59)
[2020-04-29] MEDS: FUROSEMIDE 40MG/4ML VIAL IVP SCH (09:45)
[2020-04-29] MEDS: POTASSIUM CHLORIDE 20MEQ TABLET SR PO SCH (09:46)
[2020-04-29] MEDS: LOSARTAN POTASSIUM 25 MG TABLET PO SCH (09:46)
[2020-04-29] MEDS: MAGNESIUM GLUCONATE 500MG TABLET PO SCH (09:47)
[2020-04-29] MEDS: IPRATROPIUM/ALBUTEROL 0.5-3(2.5)MG/3ML NEB HHN SCH ×2 (13:56→21:14)
[2020-04-29] MEDS ORDERED: CEFTRIAXONE 1,000 MG in DEXTROSE 5% WATER 50 ML IV SCH (15:00)
[2020-04-29] MEDS ORDERED: IPRATROPIUM/ALBUTEROL 0.5-3(2.5)MG/3ML NEB HHN SCH (16:00)
[2020-04-29] MEDS: ENOXAPARIN 40MG/0.4ML SYR SUBCUT SCH (18:16)
[2020-04-29] MEDS ORDERED: DEXTROSE 50% WATER 50ML SYRINGE IV PRN (19:45)
[2020-04-29] MEDS: INSULIN LISPRO 100 UNITS/ML SUBCUT SCH (20:55)
[2020-04-29] MEDS: BLOOD SUGAR DIAGNOSTIC STRIP TEST SCH (20:55)
[2020-04-30] VITALS: BP 134/79
[2020-04-30] MEDS: IPRATROPIUM/ALBUTEROL 0.5-3(2.5)MG/3ML NEB HHN SCH ×6 (00:37→20:00)
[2020-04-30 04:00] VITALS: BP 125/89
[2020-04-30] MEDS: INSULIN LISPRO 100 UNITS/ML SUBCUT SCH ×4 (06:10→19:49)
[2020-04-30] MEDS: BLOOD SUGAR DIAGNOSTIC STRIP TEST SCH ×4 (06:10→19:50)
[2020-04-30 07:24] LABS: BASOPHILS % 0.6 % (0.0-2.0); EOSINOPHILS % 2.6 % (0.0-5.0); HEMATOCRIT. 41.2 % (36.0-48.0); LYMPHOCYTES % 29.4 % (20.0-50.0); MEAN CORPUSCULAR HEMOGLOBIN 31.2 pg (28.0-32.0); MEAN CORPUSCULAR VOLUME 91.5 fL (81.0-99.0); MEAN PLATELET VOLUME 9.5 fl (7.4-10.4); NEUTROPHILS % 57.4 % (40.0-76.0); PLATELET 161 x1000/uL (130-400); RED CELL DISTRIBUTION WIDTH 13.2 % (11.6-14.6)
[2020-04-30 08:00] VITALS: BP_SYST 128; BP_SYST 132; BP_DIAS 63; BP_DIAS 69
[2020-04-30] MEDS ORDERED: LOSARTAN POTASSIUM 50 MG TABLET PO SCH (09:00)
[2020-04-30] MEDS: FUROSEMIDE 40MG/4ML VIAL IVP SCH (09:24)
[2020-04-30] MEDS: POTASSIUM CHLORIDE 20MEQ TABLET SR PO SCH (09:24)
[2020-04-30] MEDS: MAGNESIUM GLUCONATE 500MG TABLET PO SCH (09:24)
[2020-04-30] MEDS: ACETAMINOPHEN 325MG TABLET PO PRN ×3 (09:34→21:38)
[2020-04-30 11:41] VITALS: BP 131/78
[2020-04-30 16:00] VITALS: BP 148/69
[2020-04-30] MEDS: ENOXAPARIN 40MG/0.4ML SYR SUBCUT SCH (17:18)
[2020-04-30 20:00] VITALS: BP 131/58
[2020-05-01] VITALS: BP 157/79
[2020-05-01 04:00] VITALS: BP 180/72
[2020-05-01] MEDS: IPRATROPIUM/ALBUTEROL 0.5-3(2.5)MG/3ML NEB HHN SCH ×5 (05:13→22:21)
[2020-05-01] MEDS: INSULIN LISPRO 100 UNITS/ML SUBCUT SCH ×4 (06:51→21:02)
[2020-05-01] MEDS: BLOOD SUGAR DIAGNOSTIC STRIP TEST SCH ×4 (06:51→21:02)
[2020-05-01 07:29] LABS: BASOPHILS % 0.8 % (0.0-2.0); EOSINOPHILS % 2.8 % (0.0-5.0); HEMATOCRIT. 39.5 % (36.0-48.0); HEMOGLOBIN. 13.5 g/dL (12.0-16.0); LYMPHOCYTES % 32.4 % (20.0-50.0); MEAN CORPUSCULAR HEMOGLOBIN 31.3 pg (28.0-32.0); MEAN CORPUSCULAR VOLUME 91.6 fL (81.0-99.0); MEAN PLATELET VOLUME 10.1 fl (7.4-10.4); PLATELET 170 x1000/uL (130-400); RED BLOOD CELL COUNT 4.31 mill/uL (4.2-5.4); RED CELL DISTRIBUTION WIDTH 13.1 % (11.6-14.6)
[2020-05-01 07:58] LABS: CHLORIDE 103 mEq/L (98-107)
[2020-05-01 08:00] VITALS: BP 137/69
[2020-05-01] MEDS: FUROSEMIDE 40MG/4ML VIAL IVP SCH (10:04)
[2020-05-01] MEDS: LOSARTAN POTASSIUM 50 MG TABLET PO SCH ×2 (10:05→20:44)
[2020-05-01] MEDS: MAGNESIUM GLUCONATE 500MG TABLET PO SCH (10:05)
[2020-05-01] MEDS: POTASSIUM CHLORIDE 20MEQ TABLET SR PO SCH (10:05)
[2020-05-01 12:00] VITALS: BP 112/53
[2020-05-01] MEDS: ENOXAPARIN 40MG/0.4ML SYR SUBCUT SCH (18:05)
[2020-05-01 20:00] VITALS: BP 115/58
[2020-05-01] MEDS: ACETAMINOPHEN 325MG TABLET PO PRN (21:01)
[2020-05-02] VITALS: BP 131/54
[2020-05-02] MEDS: IPRATROPIUM/ALBUTEROL 0.5-3(2.5)MG/3ML NEB HHN SCH ×5 (01:40→20:00)
[2020-05-02 04:00] VITALS: BP 129/60
[2020-05-02] MEDS: ACETAMINOPHEN 325MG TABLET PO PRN (06:21)
[2020-05-02] MEDS: INSULIN LISPRO 100 UNITS/ML SUBCUT SCH ×4 (06:21→22:15)
[2020-05-02] MEDS: BLOOD SUGAR DIAGNOSTIC STRIP TEST SCH ×4 (06:21→21:00)
[2020-05-02 08:00] VITALS: BP 134/55
[2020-05-02] MEDS: LOSARTAN POTASSIUM 50 MG TABLET PO SCH ×2 (08:36→22:10)
[2020-05-02] MEDS: MAGNESIUM GLUCONATE 500MG TABLET PO SCH (08:36)
[2020-05-02] MEDS: POTASSIUM CHLORIDE 20MEQ TABLET SR PO SCH (08:37)
[2020-05-02] MEDS: FUROSEMIDE 40MG/4ML VIAL IVP SCH (08:37)
[2020-05-02 11:51] LABS: BASOPHILS % 0.7 % (0.0-2.0); EOSINOPHILS % 3.7 % (0.0-5.0); HEMATOCRIT. 38.9 % (36.0-48.0); LYMPHOCYTES % 23.9 % (20.0-50.0); MEAN CORPUSCULAR VOLUME 92.8 fL (81.0-99.0); MEAN PLATELET VOLUME 10.1 fl (7.4-10.4); MONOCYTES % 8.7 % (2.0-8.0); PLATELET 155 x1000/uL (130-400); RED BLOOD CELL COUNT 4.19 mill/uL (4.2-5.4); RED CELL DISTRIBUTION WIDTH 13.1 % (11.6-14.6)
[2020-05-02 12:00] VITALS: BP 128/73
[2020-05-02 16:00] VITALS: BP_SYST 120; BP_SYST 128; BP_DIAS 66; BP_DIAS 73
[2020-05-02] MEDS: ENOXAPARIN 40MG/0.4ML SYR SUBCUT SCH (17:05)
[2020-05-02] MEDS ORDERED: LOSA50TA3 PO (18:33)
[2020-05-02 20:00] VITALS: BP 124/56
[2020-05-03] VITALS: BP 128/70
[2020-05-03] MEDS: IPRATROPIUM/ALBUTEROL 0.5-3(2.5)MG/3ML NEB HHN SCH ×6 (01:41→21:58)
[2020-05-03 04:00] VITALS: BP 131/73
[2020-05-03] MEDS: BLOOD SUGAR DIAGNOSTIC STRIP TEST SCH ×4 (06:04→21:00)
[2020-05-03] MEDS: INSULIN LISPRO 100 UNITS/ML SUBCUT SCH ×4 (06:04→23:28)
[2020-05-03 08:00] VITALS: BP 111/52
[2020-05-03] MEDS: FUROSEMIDE 40MG/4ML VIAL IVP SCH (09:01)
[2020-05-03] MEDS: POTASSIUM CHLORIDE 20MEQ TABLET SR PO SCH (09:02)
[2020-05-03] MEDS: LOSARTAN POTASSIUM 50 MG TABLET PO SCH ×2 (09:02→22:06)
[2020-05-03] MEDS: MAGNESIUM GLUCONATE 500MG TABLET PO SCH (09:02)
[2020-05-03] MEDS: ACETAMINOPHEN 325MG TABLET PO PRN (09:03)
[2020-05-03 12:00] VITALS: BP 116/68
[2020-05-03 16:00] VITALS: BP 124/70
[2020-05-03] MEDS: ENOXAPARIN 40MG/0.4ML SYR SUBCUT SCH (17:15)
[2020-05-03 20:00] VITALS: BP 119/71
[2020-05-04] VITALS: BP 125/60
[2020-05-04] MEDS: IPRATROPIUM/ALBUTEROL 0.5-3(2.5)MG/3ML NEB HHN SCH ×4 (01:40→11:56)
[2020-05-04 04:00] VITALS: BP 118/66
[2020-05-04] MEDS: BLOOD SUGAR DIAGNOSTIC STRIP TEST SCH (06:46)
[2020-05-04] MEDS: ACETAMINOPHEN 325MG TABLET PO PRN (08:19)
[2020-05-04] MEDS: FUROSEMIDE 40MG/4ML VIAL IVP SCH (08:22)
[2020-05-04] MEDS: LOSARTAN POTASSIUM 50 MG TABLET PO SCH (08:22)
[2020-05-04] MEDS: MAGNESIUM GLUCONATE 500MG TABLET PO SCH (08:22)
[2020-05-04] MEDS: POTASSIUM CHLORIDE 20MEQ TABLET SR PO SCH (08:23)
[2020-05-04] MEDS: INSULIN LISPRO 100 UNITS/ML SUBCUT SCH (08:24)
[2020-05-04 09:00] VITALS: BP 102/45
[2020-05-04] MEDS ORDERED: FURO-151 MT (10:11)
[2020-05-04] MEDS ORDERED: METF-416 MT (10:11)
[2020-05-04] MEDS ORDERED: ALBU05 NEB (10:11)
== END 2020-05-04 14:40 | disposition home or self-care (01) | DRG 133 ==
LOC: ER 12:31 → EDBEDREQ 16:01 → MICUSO 18:30 → 7WST 23:56 → 8WST 04-29 11:45
PROVIDERS: ADMIT Internal Medicine; ATTEND Internal Medicine
DX: J96.00 Acute respiratory failure, unspecified whether with hypoxia or hypercapnia (principal); J44.1 Chronic obstructive pulmonary disease with (acute) exacerbation; J68.0 Bronchitis and pneumonitis due to chemicals, gases, fumes and vapors; I11.0 Hypertensive heart disease with heart failure; I50.9 Heart failure, unspecified; E83.42 Hypomagnesemia; E11.9 Type 2 diabetes mellitus without complications; E78.5 Hyperlipidemia, unspecified; E87.6 Hypokalemia; F14.10 Cocaine abuse, uncomplicated; N39.0 Urinary tract infection, site not specified; F41.9 Anxiety disorder, unspecified; R26.2 Difficulty in walking, not elsewhere classified; J44.0 Chronic obstructive pulmonary disease with (acute) lower respiratory infection; I42.7 Cardiomyopathy due to drug and external agent; I34.2 Nonrheumatic mitral (valve) stenosis; Z87.891 Personal history of nicotine dependence; Z90.710 Acquired absence of both cervix and uterus; Z88.5 Allergy status to narcotic agent; Z79.84 Long term (current) use of oral hypoglycemic drugs; Z79.899 Other long term (current) drug therapy; Z82.49 Family history of ischemic heart disease and other diseases of the circulatory system; Z03.818 Encounter for observation for suspected exposure to other biological agents ruled out; Z68.1 Body mass index [BMI] 19.9 or less, adult
CPT/HCPCS: 36415; 71045; 80048; 80053; 80061; 80305; 81003; 82728; 82962; 83036; 83615; 83735; 83880; 84100; 84443; 84484; 85025; 86141; 87635; 93005; 93306; 94640; 97162; 99285; J0696; J1650; J1815; J1940; J2405; J7060

== ENCOUNTER 2021-05-07 16:23 | Inpatient (IN) | payer MEDICARE, MEDICAID ==
[~2021-05-07] VITALS: Ht 170.2 cm; Wt 62.7 kg
[~2021-05-07 16:23] MED LIST changes: +ALBU18HF2 IH; -CARV3.1242 MT; +COR6 PO; +FLUT1DIS3 INH; +GLIP5TAB12 MT; -LOSA25TA26 MT; +LOSA50TA3 PO
[2021-05-07] MEDS ORDERED: IPRATROPIUM BROMIDE (0.02%) 0.5MG/2.5ML NEB HHN STA (17:07)
[2021-05-07] MEDS ORDERED: METHYLPREDNISOLONE SOD SUCC 125 MG/2 ML VIAL IV STA (17:07)
[2021-05-07] MEDS ORDERED: ALBUTEROL (0.083%) 2.5MG/3ML NEB HHN STA (17:07)
[2021-05-07 17:52] LABS: BASOPHILS % 0.7 % (0.0-2.0); EOSINOPHILS % 1.3 % (0.0-5.0); HEMATOCRIT. 42.2 % (36.0-48.0); HEMOGLOBIN. 13.8 g/dL (12.0-16.0); LYMPHOCYTES % 31.8 % (20.0-50.0); MEAN CORPUSCULAR HEMOGLOBIN 29.7 pg (28.0-32.0); MEAN CORPUSCULAR VOLUME 91.1 fL (81.0-99.0); MEAN PLATELET VOLUME 8.9 fl (7.4-10.4); NEUTROPHILS % 60.2 % (40.0-76.0); PLATELET 218 x1000/uL (130-400); RED BLOOD CELL COUNT 4.63 mill/uL (4.2-5.4); RED CELL DISTRIBUTION WIDTH 14.2 % (11.6-14.6)
[2021-05-07 17:56] LABS: CHLORIDE 103 mEq/L (98-107)
[2021-05-08] MEDS ORDERED: DEXTROSE 50% WATER 50ML SYRINGE IV PRN (09:45)
[2021-05-08 11:22] VITALS: BP 149/98
[2021-05-08] MEDS: BLOOD SUGAR DIAGNOSTIC STRIP TEST SCH ×3 (11:42→21:00)
[2021-05-08 11:49] VITALS: BP 149/98
[2021-05-08] MEDS ORDERED: IPRATROPIUM/ALBUTEROL 0.5-3(2.5)MG/3ML NEB HHN PRN (12:30)
[2021-05-08] MEDS ORDERED: ONDANSETRON HCL 4MG/2ML INJ IV PRN (12:30)
[2021-05-08] MEDS ORDERED: LORAZEPAM 0.5MG TABLET PO PRN (12:30)
[2021-05-08] MEDS ORDERED: ACETAMINOPHEN 325MG TABLET PO PRN (12:30)
[2021-05-08] MEDS ORDERED: DOCUSATE SODIUM 100MG CAPSULE PO PRN (12:30)
[2021-05-08] MEDS ORDERED: HYDROCODONE/ACETAMINOPHEN 5/325MG TABLET PO PRN (12:30)
[2021-05-08] MEDS: METHYLPREDNISOLONE SOD SUCC 40 MG/ML VIAL IV SCH (13:32)
[2021-05-08] MEDS: FUROSEMIDE 40MG/4ML VIAL IVP SCH (13:32)
[2021-05-08] MEDS: LOSARTAN POTASSIUM 50 MG TABLET PO SCH (13:32)
[2021-05-08] MEDS: FAMOTIDINE 20MG TABLET PO SCH (13:32)
[2021-05-08] MEDS: INSULIN LISPRO 100 UNITS/ML SUBCUT SCH ×2 (13:34→17:42)
[2021-05-08 16:00] VITALS: BP 140/94
[2021-05-08 16:08] LABS: *AMPHETAMINES SCREEN URINE NEGATIVE (NEGATIVE); *BARBITURATES SCREEN URINE NEGATIVE (NEGATIVE)
[2021-05-08 16:09] LABS: *BENZODIAZEPINES SCREEN URINE NEGATIVE (NEGATIVE); *COCAINE SCREEN URINE PRESUMTIVE POSITIVE (NEGATIVE); METHADONE URINE SCREEN NEGATIVE (NEGATIVE); OPIATES URINE SCREEN NEGATIVE (NEGATIVE); PHENCYCLIDINE URINE SCREEN NEGATIVE (NEGATIVE)
[2021-05-08 16:11] LABS: CANNABINOID URINE SCREEN NEGATIVE (NEGATIVE)
[2021-05-08 20:00] VITALS: BP 126/77
[2021-05-08] MEDS ORDERED: NALOXONE HCL 0.4MG/ML VIAL IV PRN (22:15)
[2021-05-09] VITALS: BP 118/76
[2021-05-09] MEDS: FAMOTIDINE 20MG TABLET PO SCH ×3 (01:10→22:41)
[2021-05-09] MEDS: LOSARTAN POTASSIUM 50 MG TABLET PO SCH ×2 (01:10→09:28)
[2021-05-09] MEDS: METHYLPREDNISOLONE SOD SUCC 40 MG/ML VIAL IV SCH ×4 (01:11→22:41)
[2021-05-09] MEDS: ENOXAPARIN 40MG/0.4ML SYR SUBCUT SCH ×2 (01:12→18:52)
[2021-05-09] MEDS: INSULIN LISPRO 100 UNITS/ML SUBCUT SCH ×5 (01:18→21:00)
[2021-05-09 04:00] VITALS: BP 100/75
[2021-05-09] MEDS: BLOOD SUGAR DIAGNOSTIC STRIP TEST SCH ×4 (06:24→21:00)
[2021-05-09 08:00] VITALS: BP 132/76
[2021-05-09] MEDS: FUROSEMIDE 40MG/4ML VIAL IVP SCH (09:27)
[2021-05-09 12:00] VITALS: BP 137/75
[2021-05-09] MEDS: AMLODIPINE 5MG TABLET PO SCH (13:07)
[2021-05-09] MEDS: POLYETHYLENE GLYCOL 3350 (17GM) 1 DOSE PACK PO SCH (13:07)
[2021-05-09 16:00] VITALS: BP 138/83
[2021-05-09 20:00] VITALS: BP 134/76
[2021-05-10] VITALS: BP 147/92
[2021-05-10 04:00] VITALS: BP 140/86
[2021-05-10] MEDS: METHYLPREDNISOLONE SOD SUCC 40 MG/ML VIAL IV SCH ×4 (05:53→22:51)
[2021-05-10] MEDS: BLOOD SUGAR DIAGNOSTIC STRIP TEST SCH ×4 (05:53→21:00)
[2021-05-10] MEDS: INSULIN LISPRO 100 UNITS/ML SUBCUT SCH ×4 (06:06→23:01)
[2021-05-10 08:00] VITALS: BP 138/79
[2021-05-10] MEDS: POLYETHYLENE GLYCOL 3350 (17GM) 1 DOSE PACK PO SCH (09:21)
[2021-05-10] MEDS: FUROSEMIDE 40MG TABLET PO SCH (09:21)
[2021-05-10] MEDS: AMLODIPINE 5MG TABLET PO SCH (09:21)
[2021-05-10] MEDS: FAMOTIDINE 20MG TABLET PO SCH ×3 (09:22→23:45)
[2021-05-10] MEDS ORDERED: AMLO5TAB88 PO (13:54)
[2021-05-10 16:00] VITALS: BP 130/72
[2021-05-10] MEDS: BACITRACIN 15GM TUBE TOP SCH (19:18)
[2021-05-10] MEDS: ENOXAPARIN 40MG/0.4ML SYR SUBCUT SCH (19:18)
[2021-05-10 20:00] VITALS: BP 138/81
[2021-05-11] VITALS: BP 143/84
[2021-05-11 04:00] VITALS: BP 146/97
[2021-05-11] MEDS: BLOOD SUGAR DIAGNOSTIC STRIP TEST SCH ×5 (05:43→23:18)
[2021-05-11] MEDS: METHYLPREDNISOLONE SOD SUCC 40 MG/ML VIAL IV SCH ×3 (05:43→23:18)
[2021-05-11] MEDS: BACITRACIN 15GM TUBE TOP SCH (05:43)
[2021-05-11] MEDS: ACETAMINOPHEN 325MG TABLET PO PRN (06:52)
[2021-05-11] MEDS: INSULIN LISPRO 100 UNITS/ML SUBCUT SCH ×4 (06:53→23:39)
[2021-05-11 08:00] VITALS: BP 143/78
[2021-05-11] MEDS: AMLODIPINE 5MG TABLET PO SCH (08:37)
[2021-05-11] MEDS: POLYETHYLENE GLYCOL 3350 (17GM) 1 DOSE PACK PO SCH (08:37)
[2021-05-11] MEDS: FUROSEMIDE 40MG TABLET PO SCH (08:37)
[2021-05-11 12:00] VITALS: BP 148/89
[2021-05-11 16:00] VITALS: BP 138/86
[2021-05-11 20:00] VITALS: BP 142/87
[2021-05-11] MEDS: FAMOTIDINE 20MG TABLET PO SCH (23:17)
[2021-05-11] MEDS: ENOXAPARIN 40MG/0.4ML SYR SUBCUT SCH (23:18)
[2021-05-11] MEDS ORDERED: INSULIN LISPRO 100 UNITS/ML SUBCUT NR (23:45)
[2021-05-12] VITALS: BP 130/80
[2021-05-12] MEDS ORDERED: INSULIN GLARGINE UD 100 UNITS/ML SYR SUBCUT SCH (01:00)
[2021-05-12 04:00] VITALS: BP 136/81
[2021-05-12] MEDS: METHYLPREDNISOLONE SOD SUCC 40 MG/ML VIAL IV SCH ×3 (06:07→22:50)
[2021-05-12] MEDS: INSULIN LISPRO 100 UNITS/ML SUBCUT SCH ×5 (06:16→22:57)
[2021-05-12 06:44] LABS: HEMATOCRIT. 48.1 % (36.0-48.0); HEMOGLOBIN. 15.4 g/dL (12.0-16.0); MEAN CORPUSCULAR HEMOGLOBIN 28.8 pg (28.0-32.0); MEAN CORPUSCULAR VOLUME 90.3 fL (81.0-99.0); PLATELET 204 x1000/uL (130-400); RED BLOOD CELL COUNT 5.33 mill/uL (4.2-5.4); RED CELL DISTRIBUTION WIDTH 14.1 % (11.6-14.6)
[2021-05-12 06:56] LABS: CHLORIDE 96 mEq/L (98-107)
[2021-05-12 08:00] VITALS: BP 148/93
[2021-05-12] MEDS: POLYETHYLENE GLYCOL 3350 (17GM) 1 DOSE PACK PO SCH (08:50)
[2021-05-12] MEDS: FUROSEMIDE 40MG TABLET PO SCH (08:50)
[2021-05-12] MEDS: BACITRACIN 15GM TUBE TOP SCH (08:50)
[2021-05-12] MEDS: AMLODIPINE 5MG TABLET PO SCH (08:50)
[2021-05-12 12:00] VITALS: BP 136/83
[2021-05-12] MEDS: BLOOD SUGAR DIAGNOSTIC STRIP TEST SCH ×3 (12:18→21:00)
[2021-05-12] MEDS ORDERED: INSULIN LISPRO 100 UNITS/ML SUBCUT NR ×2 (18:00→22:00)
[2021-05-12] MEDS: ENOXAPARIN 40MG/0.4ML SYR SUBCUT SCH (18:09)
[2021-05-12 19:46] LABS: PLATELET ESTIMATE NORMAL
[2021-05-12 20:00] VITALS: BP 134/79
[2021-05-12] MEDS: FAMOTIDINE 20MG TABLET PO SCH (22:50)
[2021-05-12] MEDS: INSULIN GLARGINE UD 100 UNITS/ML SYR SUBCUT SCH (22:51)
[2021-05-13] VITALS (7 sets, daily range): BP systolic 123–145; BP diastolic 76–100
[2021-05-13] MEDS: INSULIN LISPRO 100 UNITS/ML SUBCUT SCH ×7 (06:40→21:19)
[2021-05-13] MEDS: METHYLPREDNISOLONE SOD SUCC 40 MG/ML VIAL IV SCH ×2 (07:03→13:56)
[2021-05-13] MEDS: BLOOD SUGAR DIAGNOSTIC STRIP TEST SCH ×4 (07:03→21:11)
[2021-05-13] MEDS: FUROSEMIDE 40MG TABLET PO SCH (09:48)
[2021-05-13] MEDS: BACITRACIN 15GM TUBE TOP SCH (09:48)
[2021-05-13] MEDS: POLYETHYLENE GLYCOL 3350 (17GM) 1 DOSE PACK PO SCH (09:48)
[2021-05-13] MEDS: AMLODIPINE 5MG TABLET PO SCH (09:48)
[2021-05-13] MEDS: INSULIN GLARGINE UD 100 UNITS/ML SYR SUBCUT SCH ×2 (09:50→21:18)
[2021-05-13] MEDS: DIPHENHYDRAMINE 25MG CAPSULE PO PRN (10:02)
[2021-05-13 10:31] LABS: HEMATOCRIT. 49.1 % (36.0-48.0); HEMOGLOBIN. 16.2 g/dL (12.0-16.0); MEAN CORPUSCULAR HEMOGLOBIN 29.5 pg (28.0-32.0); MEAN CORPUSCULAR VOLUME 89.2 fL (81.0-99.0); MEAN PLATELET VOLUME 8.9 fl (7.4-10.4); PLATELET 225 x1000/uL (130-400)
[2021-05-13 10:45] LABS: CHLORIDE 95 mEq/L (98-107)
[2021-05-13 16:58] LABS: PLATELET ESTIMATE NORMAL
[2021-05-13] MEDS: ENOXAPARIN 40MG/0.4ML SYR SUBCUT SCH (17:55)
[2021-05-13] MEDS: FAMOTIDINE 20MG TABLET PO SCH (23:45)
[2021-05-14 04:00] VITALS: BP 129/80
[2021-05-14] MEDS: INSULIN LISPRO 100 UNITS/ML SUBCUT SCH ×7 (06:40→21:07)
[2021-05-14] MEDS: BLOOD SUGAR DIAGNOSTIC STRIP TEST SCH ×4 (06:46→20:11)
[2021-05-14] MEDS: PREDNISONE 20MG TABLET PO SCH ×2 (06:46→17:42)
[2021-05-14 08:00] VITALS: BP 127/79
[2021-05-14] MEDS: INSULIN GLARGINE UD 100 UNITS/ML SYR SUBCUT SCH (08:50)
[2021-05-14] MEDS: POLYETHYLENE GLYCOL 3350 (17GM) 1 DOSE PACK PO SCH (08:50)
[2021-05-14] MEDS: AMLODIPINE 5MG TABLET PO SCH (08:50)
[2021-05-14] MEDS: FUROSEMIDE 40MG TABLET PO SCH (08:50)
[2021-05-14] MEDS ORDERED: HEPARIN SODIUM 1,000 UNIT/1ML VIAL IV ONE (09:15)
[2021-05-14] MEDS ORDERED: MIDAZOLAM HCL 2 MG/2 ML VIAL ONE (10:20)
[2021-05-14] MEDS ORDERED: FENTANYL CITRATE/PF 50MCG/ML 2ML VIAL ONE (10:20)
[2021-05-14] MEDS ORDERED: LIDOCAINE HCL 1% 20ML VIAL (Pyxis) INJ ONE (10:20)
[2021-05-14] MEDS ORDERED: IODIXANOL 320MG/ML 100 ML BOTTLE IV ONE (10:21)
[2021-05-14] MEDS ORDERED: IOHEXOL-300 100 ML BOTTLE ONE (10:58)
[2021-05-14 12:00] VITALS: BP 139/82
[2021-05-14] MEDS: CLOPIDOGREL 75MG TABLET PO SCH (12:54)
[2021-05-14] MEDS: BACITRACIN 15GM TUBE TOP SCH (12:55)
[2021-05-14] MEDS ORDERED: LIDOCAINE HCL 2% JELLY 5ML TOP SCH (14:00)
[2021-05-14] MEDS ORDERED: LIDOCAINE HCL 1% 20ML VIAL (Pyxis) INJ INFIL SCH (14:00)
[2021-05-14 16:00] VITALS: BP 129/77
[2021-05-14] MEDS: ENOXAPARIN 40MG/0.4ML SYR SUBCUT SCH (18:23)
[2021-05-14 20:00] VITALS: BP 126/82
[2021-05-14] MEDS: FAMOTIDINE 20MG TABLET PO SCH (22:54)
[2021-05-15] VITALS: BP 122/81
[2021-05-15 04:00] VITALS: BP 125/83
[2021-05-15] MEDS: BLOOD SUGAR DIAGNOSTIC STRIP TEST SCH ×4 (05:56→21:07)
[2021-05-15] MEDS: INSULIN LISPRO 100 UNITS/ML SUBCUT SCH ×7 (06:29→21:10)
[2021-05-15] MEDS: PREDNISONE 20MG TABLET PO SCH ×2 (06:29→18:00)
[2021-05-15 08:00] VITALS: BP 128/76
[2021-05-15 08:09] LABS: EOSINOPHILS % 0.1 % (0.0-5.0); HEMATOCRIT. 45.3 % (36.0-48.0); HEMOGLOBIN. 14.8 g/dL (12.0-16.0); LYMPHOCYTES % 13.9 % (20.0-50.0); MEAN CORPUSCULAR HEMOGLOBIN 29.1 pg (28.0-32.0); MEAN CORPUSCULAR VOLUME 89.2 fL (81.0-99.0); MEAN PLATELET VOLUME 9.3 fl (7.4-10.4); MONOCYTES % 7.2 % (2.0-8.0); NEUTROPHILS % 78.8 % (40.0-76.0); PLATELET 203 x1000/uL (130-400); RED BLOOD CELL COUNT 5.08 mill/uL (4.2-5.4); RED CELL DISTRIBUTION WIDTH 14.4 % (11.6-14.6)
[2021-05-15 08:13] LABS: CHLORIDE 99 mEq/L (98-107)
[2021-05-15] MEDS: CLOPIDOGREL 75MG TABLET PO SCH (08:24)
[2021-05-15] MEDS: AMLODIPINE 5MG TABLET PO SCH (08:24)
[2021-05-15] MEDS: FUROSEMIDE 40MG TABLET PO SCH ×2 (08:24→08:55)
[2021-05-15] MEDS: BACITRACIN 15GM TUBE TOP SCH (08:25)
[2021-05-15] MEDS: POLYETHYLENE GLYCOL 3350 (17GM) 1 DOSE PACK PO SCH (08:54)
[2021-05-15] MEDS: ACETAMINOPHEN 325MG TABLET PO PRN ×2 (10:17→21:14)
[2021-05-15 12:00] VITALS: BP 127/81
[2021-05-15 16:00] VITALS: BP 132/76
[2021-05-15 20:00] VITALS: BP 138/78
[2021-05-15] MEDS: FAMOTIDINE 20MG TABLET PO SCH (21:10)
[2021-05-15] MEDS: ENOXAPARIN 40MG/0.4ML SYR SUBCUT SCH (21:15)
[2021-05-16] VITALS: BP 117/77
[2021-05-16] MEDS: ACETAMINOPHEN 325MG TABLET PO PRN ×2 (03:37→18:28)
[2021-05-16 04:00] VITALS: BP 142/96
[2021-05-16] MEDS: DIPHENHYDRAMINE 25MG CAPSULE PO PRN (04:48)
[2021-05-16 05:21] LABS: CHLORIDE 100 mEq/L (98-107)
[2021-05-16 06:32] LABS: BASOPHILS % 0.1 % (0.0-2.0); EOSINOPHILS % 0.1 % (0.0-5.0); HEMOGLOBIN. 14.4 g/dL (12.0-16.0); LYMPHOCYTES % 7.8 % (20.0-50.0); MEAN CORPUSCULAR HEMOGLOBIN 29.6 pg (28.0-32.0); MEAN CORPUSCULAR VOLUME 90.4 fL (81.0-99.0); MEAN PLATELET VOLUME 9.4 fl (7.4-10.4); MONOCYTES % 5.6 % (2.0-8.0); NEUTROPHILS % 86.4 % (40.0-76.0); PLATELET 185 x1000/uL (130-400); RED BLOOD CELL COUNT 4.86 mill/uL (4.2-5.4); RED CELL DISTRIBUTION WIDTH 14.3 % (11.6-14.6)
[2021-05-16] MEDS: INSULIN LISPRO 100 UNITS/ML SUBCUT SCH ×7 (06:41→20:55)
[2021-05-16] MEDS: PREDNISONE 20MG TABLET PO SCH ×2 (06:43→16:26)
[2021-05-16] MEDS: BLOOD SUGAR DIAGNOSTIC STRIP TEST SCH ×4 (06:43→20:38)
[2021-05-16 08:00] VITALS: BP 145/83
[2021-05-16] MEDS: POLYETHYLENE GLYCOL 3350 (17GM) 1 DOSE PACK PO SCH (09:35)
[2021-05-16] MEDS: AMLODIPINE 5MG TABLET PO SCH (09:35)
[2021-05-16] MEDS: FUROSEMIDE 40MG TABLET PO SCH (09:35)
[2021-05-16] MEDS: CLOPIDOGREL 75MG TABLET PO SCH (09:35)
[2021-05-16] MEDS: BACITRACIN 15GM TUBE TOP SCH (09:36)
[2021-05-16] MEDS ORDERED: SODIUM POLYSTYRENE SULFONATE 15 G/60 ML BOT PO NR (10:00)
[2021-05-16 12:00] VITALS: BP 129/73
[2021-05-16 16:00] VITALS: BP 122/75
[2021-05-16] MEDS: ENOXAPARIN 40MG/0.4ML SYR SUBCUT SCH (18:29)
[2021-05-16 20:00] VITALS: BP 135/83
[2021-05-17] VITALS: BP 130/80
[2021-05-17] MEDS: FAMOTIDINE 20MG TABLET PO SCH ×2 (01:52→22:24)
[2021-05-17 04:00] VITALS: BP 128/77
[2021-05-17] MEDS: PREDNISONE 20MG TABLET PO SCH ×2 (06:24→16:43)
[2021-05-17] MEDS: ACETAMINOPHEN 325MG TABLET PO PRN (06:25)
[2021-05-17] MEDS: INSULIN LISPRO 100 UNITS/ML SUBCUT SCH ×7 (06:37→21:31)
[2021-05-17] MEDS: BLOOD SUGAR DIAGNOSTIC STRIP TEST SCH ×4 (06:38→21:32)
[2021-05-17 07:37] LABS: BASOPHILS % 0.2 % (0.0-2.0); EOSINOPHILS % 0.1 % (0.0-5.0); HEMOGLOBIN. 15.9 g/dL (12.0-16.0); LYMPHOCYTES % 15.1 % (20.0-50.0); MEAN CORPUSCULAR HEMOGLOBIN 29.4 pg (28.0-32.0); MEAN CORPUSCULAR VOLUME 90.4 fL (81.0-99.0); MEAN PLATELET VOLUME 8.9 fl (7.4-10.4); MONOCYTES % 5.7 % (2.0-8.0); NEUTROPHILS % 78.9 % (40.0-76.0); PLATELET 215 x1000/uL (130-400); RED BLOOD CELL COUNT 5.43 mill/uL (4.2-5.4); RED CELL DISTRIBUTION WIDTH 14.4 % (11.6-14.6)
[2021-05-17 08:00] VITALS: BP 127/60
[2021-05-17 08:17] LABS: CHLORIDE 99 mEq/L (98-107)
[2021-05-17] MEDS: CLOPIDOGREL 75MG TABLET PO SCH (08:57)
[2021-05-17] MEDS: AMLODIPINE 5MG TABLET PO SCH (08:57)
[2021-05-17] MEDS: POLYETHYLENE GLYCOL 3350 (17GM) 1 DOSE PACK PO SCH ×2 (08:57→09:00)
[2021-05-17] MEDS: FUROSEMIDE 40MG TABLET PO SCH (08:57)
[2021-05-17] MEDS: BACITRACIN 15GM TUBE TOP SCH (08:58)
[2021-05-17 12:00] VITALS: BP_SYST 121; BP_SYST 138; BP_DIAS 78; BP_DIAS 82
[2021-05-17 16:00] VITALS: BP 140/97
[2021-05-17] MEDS: ENOXAPARIN 40MG/0.4ML SYR SUBCUT SCH (17:46)
[2021-05-17 20:00] VITALS: BP 131/83
[2021-05-17] MEDS: DIPHENHYDRAMINE 25MG CAPSULE PO PRN (22:24)
[2021-05-18] VITALS: BP 126/81
[2021-05-18 04:00] VITALS: BP 122/73
[2021-05-18] MEDS: INSULIN LISPRO 100 UNITS/ML SUBCUT SCH ×7 (06:07→21:21)
[2021-05-18] MEDS: BLOOD SUGAR DIAGNOSTIC STRIP TEST SCH ×4 (06:13→21:21)
[2021-05-18 08:00] VITALS: BP 117/71
[2021-05-18] MEDS: CLOPIDOGREL 75MG TABLET PO SCH (08:42)
[2021-05-18] MEDS: AMLODIPINE 5MG TABLET PO SCH (08:43)
[2021-05-18] MEDS: POLYETHYLENE GLYCOL 3350 (17GM) 1 DOSE PACK PO SCH (08:43)
[2021-05-18] MEDS: PREDNISONE 20MG TABLET PO SCH ×2 (08:43→17:20)
[2021-05-18] MEDS: FUROSEMIDE 40MG TABLET PO SCH (08:43)
[2021-05-18] MEDS: BACITRACIN 15GM TUBE TOP SCH (08:44)
[2021-05-18] MEDS ORDERED: LIDOCAINE HCL 1% 20ML VIAL (Pyxis) INJ INFIL STA (10:43)
[2021-05-18 12:00] VITALS: BP 130/90
[2021-05-18 16:00] VITALS: BP 150/90
[2021-05-18] MEDS: ENOXAPARIN 40MG/0.4ML SYR SUBCUT SCH (18:31)
[2021-05-18 20:00] VITALS: BP 140/65
[2021-05-18] MEDS: INSULIN GLARGINE UD 100 UNITS/ML SYR SUBCUT SCH (22:01)
[2021-05-18] MEDS: ACETAMINOPHEN 325MG TABLET PO PRN (22:03)
[2021-05-18] MEDS: DIPHENHYDRAMINE 25MG CAPSULE PO PRN (22:03)
[2021-05-18] MEDS: FAMOTIDINE 20MG TABLET PO SCH (22:06)
[2021-05-18] MEDS ORDERED: DEXTROSE 50% WATER 50ML SYRINGE IV PRN (23:15)
[2021-05-18] MEDS ORDERED: INSULIN LISPRO 100 UNITS/ML SUBCUT NR (23:15)
[2021-05-19] VITALS: BP 130/72
[2021-05-19 04:00] VITALS: BP 133/77
[2021-05-19] MEDS: BLOOD SUGAR DIAGNOSTIC STRIP TEST SCH ×3 (06:21→17:08)
[2021-05-19] MEDS: INSULIN LISPRO 100 UNITS/ML SUBCUT SCH ×6 (06:37→17:41)
[2021-05-19 08:00] VITALS: BP 128/72
[2021-05-19] MEDS: POLYETHYLENE GLYCOL 3350 (17GM) 1 DOSE PACK PO SCH (08:13)
[2021-05-19] MEDS: CLOPIDOGREL 75MG TABLET PO SCH (08:13)
[2021-05-19] MEDS: FUROSEMIDE 40MG TABLET PO SCH (08:13)
[2021-05-19] MEDS: AMLODIPINE 5MG TABLET PO SCH (08:13)
[2021-05-19] MEDS: PREDNISONE 20MG TABLET PO SCH ×2 (08:14→17:41)
[2021-05-19] MEDS: BACITRACIN 15GM TUBE TOP SCH (10:01)
[2021-05-19] MEDS: INSULIN GLARGINE UD 100 UNITS/ML SYR SUBCUT SCH (10:54)
[2021-05-19 12:00] VITALS: BP 126/69
[2021-05-19] MEDS ORDERED: COR6 PO (14:53)
[2021-05-19] MEDS ORDERED: FURO-151 MT (14:53)
[2021-05-19] MEDS ORDERED: ALBU18HF2 IH (14:53)
[2021-05-19] MEDS ORDERED: LOSA50TA3 PO (14:53)
[2021-05-19] MEDS ORDERED: METF-416 MT (14:53)
[2021-05-19] MEDS ORDERED: GLIP5TAB12 MT (14:53)
[2021-05-19 16:00] VITALS: BP 113/72
[2021-05-19 18:28] VITALS: BP 113/72
[2021-05-19] MEDS: ENOXAPARIN 40MG/0.4ML SYR SUBCUT SCH (19:42)
== END 2021-05-19 19:50 | disposition home health service (06) | DRG 182 ==
LOC: ER 16:23 → EDBEDREQTM 19:29 → EDBEDREQ 19:29 → MICUSO 21:10 → 7EST 05-08 09:16
PROVIDERS: ADMIT Internal Medicine; ATTEND Internal Medicine
PROC: 047P3ZZ Dilation of Right Anterior Tibial Artery, Percutaneous Approach (ICD-10-PCS; principal; 2021-05-14)
PROC: B41F1ZZ Fluoroscopy of Right Lower Extremity Arteries using Low Osmolar Contrast (ICD-10-PCS; 2021-05-14)
PROC: 0JBQ0ZZ Excision of Right Foot Subcutaneous Tissue and Fascia, Open Approach (ICD-10-PCS; 2021-05-14)
PROC: 0JBQ0ZZ Excision of Right Foot Subcutaneous Tissue and Fascia, Open Approach (ICD-10-PCS; 2021-05-18)
DX: E11.52 Type 2 diabetes mellitus with diabetic peripheral angiopathy with gangrene (principal); J96.90 Respiratory failure, unspecified, unspecified whether with hypoxia or hypercapnia; I11.0 Hypertensive heart disease with heart failure; E11.649 Type 2 diabetes mellitus with hypoglycemia without coma; I50.22 Chronic systolic (congestive) heart failure; I96 Gangrene, not elsewhere classified; L84 Corns and callosities; N39.0 Urinary tract infection, site not specified; F41.9 Anxiety disorder, unspecified; E11.65 Type 2 diabetes mellitus with hyperglycemia; Z20.822 Contact with and (suspected) exposure to COVID-19; F14.10 Cocaine abuse, uncomplicated; Z79.84 Long term (current) use of oral hypoglycemic drugs; Z90.710 Acquired absence of both cervix and uterus; Z72.0 Tobacco use; Z79.51 Long term (current) use of inhaled steroids; Z88.8 Allergy status to other drugs, medicaments and biological substances; Z79.899 Other long term (current) drug therapy; J44.1 Chronic obstructive pulmonary disease with (acute) exacerbation; I70.235 Atherosclerosis of native arteries of right leg with ulceration of other part of foot
CPT/HCPCS: 36415; 37228; 71045; 73630; 75710; 80048; 80053; 80305; 82947; 82962; 83880; 84132; 84484; 85025; 85347; 87426; 93005; 93923; 94640; 99291; C1725; C1760; C1769; C1887; C1893; C1894; J1644; J1650; J1815; J1940; J2250; J2920; J2930; J3010; J3490; J7512; Q0163; Q9967